=== PATIENT | male | born 1950 | race Hispanic/Latino ===

== ENCOUNTER 2017-05-09 11:44 | Observation (INO) | payer OTHER ==
[2017-05-09] MEDS ORDERED: ASPIRIN 81 MG CHEWABLE TABLET ONE (13:09)
--- NOTE | 2017-05-09 13:30 | RAD REPORT ---
EXAM DESCRIPTION: RAD - Chest Single View - 05/09/2017 1:22 pm CLINICAL HISTORY: Chest pain and pressure, pain radiating to the left arm COMPARISON: None. TECHNIQUE: AP portable chest image was obtained 1319 hours . FINDINGS: Lungs are clear. Heart and vasculature are normal. No measurable pleural effusion and no p neumothorax. No gross bony abnormality seen. No acute aortic findings suspected. IMPRESSION: No acute cardiopulmonary process.
[2017-05-09 13:53] LABS: Albumin 4.3 g/dL (3.2-5.5); Bilirubin Direct 0.2 mg/dL (0-0.2); Bilirubin Total 0.6 mg/dL (0.3-1.2); Protein, Total 7.4 g/dL (6.0-8.3)
[2017-05-09 13:55] LABS: Absolute Lymphocytes (CBC) 2.9 K/uL (0.7-4.9); Absolute Monocytes 0.5 K/uL (0.1-1.3); Absolute Neutrophil 9.5 K/uL (1.8-8.0); Basophils % 0.7 % (0-1.3); Eosinophils % 0.2 % (0-4.4); Lymphocytes % 22.3 % (15.3-44.8); MCH 30.9 pg (27.0-35.0); MCV 93.4 fL (80-100); MPV 9.2 fL (7.6-11.3); Monocytes % 3.6 % (3.3-12.3)
[2017-05-09 14:01] LABS: Protime INR 1.1
[2017-05-09 14:10] LABS: Bicarbonate 26 mEq/L (21-31); Glucose Level 110 mg/dL (65-120); Potassium 4.4 mEq/L (3.6-5.0); Sodium Level 143 mEq/L (135-145)
[2017-05-09 14:14] LABS: BUN Blood Urea Nitrogen 14 mg/dL (6-20); Creatine Phosphokinase 58 IU/L (22-269); Glomerular Filtration Rate > 90 mL/min (=/>90); Magnesium 2.2 mg/dL (1.8-2.5)
[2017-05-09 14:22] LABS: CKMB Creatine Kinase MB 0.6 ng/ml (0.3-4.0)
--- NOTE | 2017-05-09 15:05 | EDPHYS ---
Physician Documentation [facility] Name: Jacob Goncalves Age: 66 yrs Sex: Male : 1950 Arrival Date: 05/09/2017 Time: 11:44 Bed 2 Private MD: ED Physician Merrick Blanca HPI: 05/09 12:47 This 66 yrs old Male presents to ER via Ambulatory with complaints of Chest kb Tightness. 12:47 The patient or guardian reports chest pain that is located primarily in the epigastric kb area, anterior chest wall, left. Onset: yesterday. The pain radiates to the left arm, the left shoulder. Associated signs and symptoms: Pertinent positives: abdominal pain, nausea, shortness of breath. The chest pain is described as a pressure. Duration: The patient or guardian reports a single episode, that is still ongoing. Modifying factors: The symptoms are alleviated by nothing. the symptoms are aggravated by nothing. Severity of pain: At its worst the pain was moderate in the emergency department the pain is unchanged. The patient has not experienced similar symptoms in the past. The patient has not recently seen a physician. Historical: - Allergies: 11:54 No Known Drug Allergies; ph - PMHx: 11:54 Myocardial infarction; Hypertension; High Cholesterol; ph - PSHx: 11:54 left lower leg surgery for injury with saw (2008); neck surgery; ph - Immunization history:: Adult Immunizations up to date. - Social history:: Smoking status: Patient uses tobacco products, denies chronic smoking, but will smoke occasionally. ROS: 12:45 Constitutional: Negative for fever, chills, and weight loss, ENT: Negative for injury, kb pain, and discharge, Neck: Negative for injury, pain, and swelling, Back: Negative for injury and pain, : Negative for injury, bleeding, discharge, and swelling, MS/Extremity: Negative for injury and deformity, Skin: Negative for injury, rash, and discoloration, Neuro: Negative for headache, weakness, numbness, tingling, and seizure. 12:45 Cardiovascular: Positive for chest pain, Negative for edema, orthopnea, palpitations, paroxysmal nocturnal dyspnea. 12:45 Respiratory: Positive for shortness of breath, Negative for cough, dyspnea on exertion, hemoptysis, orthopnea, pleurisy, sputum production, wheezing. 12:45 Abdomen/GI: Positive for abdominal pain, nausea, Negative for vomiting, diarrhea, constipation, abdominal cramps, abdominal distension, anorexia. Exam: 12:45 Constitutional: This is a well developed, well nourished patient who is awake, alert, kb and in no acute distress. Head/Face: Normocephalic, atraumatic. ENT: Nares patent. No nasal discharge, no septal abnormalities noted. Tympanic membranes are normal and external auditory canals are clear. Oropharynx with no redness, swelling, or masses, exudates, or evidence of obstruction, uvula midline. Mucous membranes moist. Neck: Trachea midline, no thyromegaly or masses palpated, and no cervical lymphadenopathy. Supple, full range of motion without nuchal rigidity, or vertebral point tenderness. No Meningismus. Chest/axilla: Normal chest wall appearance and motion. Nontender with no deformity. No lesions are appreciated. Cardiovascular: Regular rate and rhythm with a normal S1 and S2. No gallops, murmurs, or rubs. Normal PMI, no JVD. No pulse deficits. Respiratory: Lungs have equal breath sounds bilaterally, clear to auscultation and percussion. No rales, rhonchi or wheezes noted. No increased work of breathing, no retractions or nasal flaring. Back: No spinal tenderness. No costovertebral tenderness. Full range of motion. Skin: Warm, dry with normal turgor. Normal color with no rashes, no lesions, and no evidence of cellulitis. MS/ Extremity: Pulses equal, no cyanosis. Neurovascular intact. Full, normal range of motion. Neuro: Awake and alert, GCS 15, oriented to person, place, time, and situation. Cranial nerves II-XII grossly intact. Motor strength 5/5 in all extremities. Sensory grossly intact. Cerebellar exam normal. Normal gait. 12:45 Abdomen/GI: Inspection: abdomen appears normal, Bowel sounds: normal, in all quadrants, Palpation: soft, in all quadrants, moderate abdominal tenderness, in the right upper quadrant and left upper quadrant. Vital Signs: 11:51 BP 131 / 86; Pulse 57; Resp 18; Temp 98.2; Pulse Ox 98% on R/A; Weight 74.84 kg; Height ph 5 ft. 4 in. (162.56 cm); Pain 8/10; 13:57 BP 128 / 71; Pulse 56 MON; Resp 16; Pulse Ox 100% on 2 lpm NC; sv 15:06 BP 128 / 75; Pulse 64; Resp 20; Pulse Ox 100% on 2 lpm NC; sv 15:51 BP 126 / 77; Pulse 62 MON; Resp 18; Pulse Ox 100% on 2 lpm NC; sv 11:51 Body Mass Index 28.32 (74.84 kg, 162.56 cm) ph 13:57 Sinus bradycardia sv 15:51 Sinus Rhythm sv MDM: 12:24 Patient medically screened. kb 12:45 The patient was given aspirin in the Emergency Department. Data reviewed: vital signs, kb nurses notes. Data interpreted: Pulse oximetry: on room air is 98 %. Interpretation: normal. 15:02 Counseling: I had a detailed discussion with the patient and/or guardian regarding: the kb historical points, exam findings, and any diagnostic results supporting the discharge/admit diagnosis, lab results, radiology results, the need for further work-up and treatment in the hospital. Physician consultation: Chandan Lacey MD was contacted at 15:03, regarding admission, to the telemetry unit. patient's condition, and will see patient in inpatient room. Admission orders: after a detailed discussion of the patient's condition and case, the admit orders are written by me. 15:04 ED course: family is requesting us of gallbladder to see if that is the cause. 05/09 12:24 Order name: Basic Metabolic Panel 05/09 12:24 Order name: BNP 05/09 12:24 Order name: CBC with Diff 05/09 12:24 Order name: Ckmb 05/09 12:24 Order name: CPK 05/09 12:24 Order name: Magnesium 05/09 12:24 Order name: PT-INR 05/09 12:24 Order name: Ptt, Activated 05/09 12:24 Order name: Troponin (emerg Dept Use Only) 05/09 12:29 Order name: Amylase, Serum 05/09 12:29 Order name: Hepatic Function 05/09 12:29 Order name: Lipase 05/09 13:47 Order name: Lipase; Complete Time: 13:58 EDMS 05/09 13:54 Order name: Liver (Hepatic) Function; Complete Time: 13:58 EDMS 05/09 12:24 Order name: XRAY Chest (1 view) kb 05/09 13:31 Order name: RAD; Complete Time: 13:40 EDMS 05/09 13:54 Order name: Troponin (Emerg Dept Use Only); Complete Time: 13:58 EDMS 05/09 13:56 Order name: Amylase Level; Complete Time: 13:58 EDMS 05/09 13:58 Order name: CBC with Automated Diff; Complete Time: 13:58 EDMS 05/09 14:04 Order name: Protime (+INR); Complete Time: 14:04 EDMS 05/09 14:04 Order name: PTT, Activated Partial Thromb; Complete Time: 14:04 EDMS 05/09 14:11 Order name: Basic Metabolic Panel; Complete Time: 14:36 EDMS 05/09 14:14 Order name: Creatine Phosphokinase; Complete Time: 14:36 EDMS 05/09 14:14 Order name: Magnesium; Complete Time: 14:36 EDMS 05/09 14:22 Order name: CKMB Creatine Kinase MB; Complete Time: 14:36 EDMS 05/09 14:27 Order name: BNP B-Type Natriuretic Peptide; Complete Time: 14:36 EDMS 05/09 15:02 Order name: US Abdomen Limited kb 05/09 16:15 Order name: Urine Dipstick--Ancillary (enter results) bd 05/09 12:24 Order name: EKG; Complete Time: 12:25 kb 05/09 12:24 Order name: Cardiac monitoring; Complete Time: 13:53 kb 05/09 12:24 Order name: EKG - Nurse/Tech; Complete Time: 14:06 kb 05/09 12:24 Order name: IV Saline Lock; Complete Time: 13:54 kb 05/09 12:24 Order name: Labs collected and sent; Complete Time: 13:54 kb 05/09 12:24 Order name: O2 Per Protocol; Complete Time: 13:54 kb 05/09 12:24 Order name: O2 Sat Monitoring; Complete Time: 13:54 kb 05/09 12:24 Order name: Urine Dipstick-Ancillary (obtain specimen); Complete Time: 16:12 kb 05/09 13:42 Order name: Labs - recollect needed; Complete Time: 13:53 bd Administered Medications: 13:00 Drug: Aspirin Chewable Tablet 324 mg Route: PO; sv 14:06 Follow up: Response: No adverse reaction sv 15:12 Drug: Zofran 4 mg {Note: given in right ankle.} Route: IVP; Infused Over: 2 mins; Site: sv Other; 15:52 Follow up: Response: No adverse reaction sv 15:14 Drug: morphine 2 mg {Note: given in right ankle.} Route: IVP; Site: Other; sv 15:52 Follow up: Response: No adverse reaction sv Disposition: 05/09/17 15:05 Hospitalization ordered by Chandan Lacey for Observation. Preliminary diagnosis is Chest pain, unspecified. - Bed requested for Telemetry/MedSurg (observation). - Status is Observation. sv - Condition is Stable. - Problem is new. - Symptoms are unchanged. UTI on Admission? No Addendum: 05/13/2017 07:18 Co-signature as Attending Physician, Merrick Blanca MD. g s Signatures: Dispatcher [employer] EDDeirdre Mustafa, JUDY-C PSYCHIATRIC CNS-CkCheri Sullivan Stephanie, RN RN sv Hall, Patricia, RN RN Merrick Blanca MD MD
--- NOTE | 2017-05-09 15:05 | ER ---
Nurse's Notes [facility] Name: Jacob Goncalves Age: 66 yrs Sex: Male : 1950 Arrival Date: 05/09/2017 Time: 11:44 Bed 2 Private MD: Diagnosis: Chest pain, unspecified Presentation: 05/09 11:48 Presenting complaint: Presenting complaint: states: " He woke up this morning ph feeling very tired and saying that his chest was hurting and that his stomach felt like he was having indigestion. He has had a heart attack before." Pt reports chest pressure in center of chest that radiated to L arm, nausea and SOB. 11:48 Transition of care: patient was not received from another setting of care. Onset of ph symptoms was May 09, 2017. Care prior to arrival: None. 11:48 Method Of Arrival: Ambulatory ph 11:48 Method Of Arrival: Ambulatory ph 11:48 Acuity: EVA 3 ph Triage Assessment: 11:54 General: Appears in no apparent distress. comfortable, well groomed, Behavior is calm, ph cooperative. Pain: Complains of pain in anterior aspect of left upper chest, diaphragm and mid-sternal area Pain radiates to left arm. Neuro: Level of Consciousness is awake, alert, obeys commands, Oriented to person, place, time, situation. Cardiovascular: Reports chest pain, fatigue, nausea, shortness of breath. Historical: - Allergies: 11:54 No Known Drug Allergies; ph - PMHx: 11:54 Myocardial infarction; Hypertension; High Cholesterol; ph - PSHx: 11:54 left lower leg surgery for injury with saw (2008); neck surgery; ph - Immunization history:: Adult Immunizations up to date. - Social history:: Smoking status: Patient uses tobacco products, denies chronic smoking, but will smoke occasionally. Screenin:50 Abuse screen: Denies threats or abuse. Denies injuries from another. Nutritional sv screening: No deficits noted. Tuberculosis screening: No symptoms or risk factors identified. Fall Risk None identified. Assessment: 12:50 General: Appears in no apparent distress. uncomfortable, slender, well developed, sv Behavior is calm, cooperative, appropriate for age. Pain: Complains of pain in diaphragm, xyphoid area and mid-sternal area Pain radiates to left supraclavicular area and left arm Pain currently is 8 out of 10 on a pain scale. Quality of pain is described as squeezing, Pain began today Is intermittent, episodic, Aggravated by deep breathing Also complains of decreased appetite. Neuro: Level of Consciousness is awake, alert, obeys commands, Oriented to person, place, time, situation, Moves all extremities. Full function Speech is normal. Cardiovascular: Patient's skin is warm and dry. Pulses are 3+ in right radial artery and left radial artery. Respiratory: Reports shortness of breath intermittently pain with respiration Respiratory effort is even, unlabored, Respiratory pattern is regular, symmetrical. Derm: Skin is normal. Musculoskeletal: Range of motion: intact in all extremities. 14:05 Reassessment: Patient appears in no apparent distress at this time. No changes from sv previously documented assessment. Patient and/or family updated on plan of care and expected duration. Pain level reassessed. Patient is alert, oriented x 3, equal unlabored respirations, skin warm/dry/pink. 15:12 Reassessment: Patient appears in no apparent distress at this time. No changes from sv previously documented assessment. Patient and/or family updated on plan of care and expected duration. Pain level reassessed. Patient is alert, oriented x 3, equal unlabored respirations, skin warm/dry/pink. 15:40 Reassessment: Attempted to call report. Will call back. sv 16:07 Reassessment: Ultrasound at the bedside. sv Vital Signs: 11:51 BP 131 / 86; Pulse 57; Resp 18; Temp 98.2; Pulse Ox 98% on R/A; Weight 74.84 kg; Height ph 5 ft. 4 in. (162.56 cm); Pain 8/10; 13:57 BP 128 / 71; Pulse 56 MON; Resp 16; Pulse Ox 100% on 2 lpm NC; sv 15:06 BP 128 / 75; Pulse 64; Resp 20; Pulse Ox 100% on 2 lpm NC; sv 15:51 BP 126 / 77; Pulse 62 MON; Resp 18; Pulse Ox 100% on 2 lpm NC; sv 11:51 Body Mass Index 28.32 (74.84 kg, 162.56 cm) ph 13:57 Sinus bradycardia sv 15:51 Sinus Rhythm sv ED Course: 11:44 Patient arrived in ED. as 11:51 Triage completed. ph 11:54 Arm band placed on. ph 11:59 Patient placed in waiting room, Patient notified of wait time. EKG completed in triage. ph Results shown to MD. 12:24 Deirdre Tran FNP-C is [facility]. kb 12:24 Merrick Blanca MD is Attending Physician. kb 12:49 Jenae Freed, ANGEL is Primary Nurse. sv 12:50 Patient has correct armband on for positive identification. Placed in gown. Bed in low sv position. Call light in reach. Side rails up X 1. Adult w/ patient. traffic monitor specialist on. Pulse ox on. NIBP on. Door closed. Warm blanket given. Head of bed elevated. 12:50 Oxygen administration via nasal cannula \\T\\ 2L/min. sv 12:55 Missed attempt(s): 20 gauge in left antecubital area. Bleeding controlled, band aid sv applied, catheter tip intact. 13:05 Initial lab(s) drawn, by me, sent to lab. Missed attempt(s): 22 gauge in right hand. sv Bleeding controlled, band aid applied, catheter tip intact. 13:20 Missed attempt(s): 20 gauge in right antecubital area. by Dr Blanca using ultrasound but sv was unsuccessful.. 13:30 Missed attempt(s): 18 gauge in right upper arm. done by Dr Blanca using ultrasound but sv was unsuccessful 3 times.. 13:45 Lab(s) recollected, by me, sent to lab. Inserted saline lock: 20 gauge in right ,using sv aseptic technique. ankle, done by Dr Blanca. Blood collected. 13:53 Amylase, Serum Sent. sv 13:53 Hepatic Function Sent. sv 13:53 Lipase Sent. sv 13:54 Basic Metabolic Panel Sent. sv 13:54 BNP Sent. sv 13:55 CBC with Diff Sent. sv 13:55 Ckmb Sent. sv 13:55 CPK Sent. sv 13:55 Magnesium Sent. sv 13:55 PT-INR Sent. sv 13:55 Ptt, Activated Sent. sv 13:55 Troponin (emerg Dept Use Only) Sent. sv 14:02 One-on-one care X 60 minutes. sv 14:06 Awaiting lab results, Awaiting radiology results. sv 15:04 Chandan Lacey MD is Hospitalizing Provider. kb 15:20 ED physician to see patient. sv 16:06 No provider procedures requiring assistance completed. Patient admitted, IV remains in sv place. intact. 16:11 Urine collected: clean catch specimen, clear. ag 16:15 Ultrasound completed. Patient tolerated well. sg3 Administered Medications: 13:00 Drug: Aspirin Chewable Tablet 324 mg Route: PO; sv 14:06 Follow up: Response: No adverse reaction sv 15:12 Drug: Zofran 4 mg {Note: given in right ankle.} Route: IVP; Infused Over: 2 mins; Site: sv Other; 15:52 Follow up: Response: No adverse reaction sv 15:14 Drug: morphine 2 mg {Note: given in right ankle.} Route: IVP; Site: Other; sv 15:52 Follow up: Response: No adverse reaction sv Outcome: 15:05 Decision to Hospitalize by Provider. kb 16:07 Admitted to Tele accompanied by tech, family with patient, via wheelchair, room 406, sv with oxygen, with chart, Report called to Dinorah ORTIZ 16:07 Condition: stable 16:07 Instructed on the need for admit. 16:23 Patient left the ED. sv Signatures: Deirdre Tran, BORDER GUARD-C BORDER GUARD-Jenae Newton, RN RN sv Anu Valencia Ana ag Hall, Patricia, ANGEL RN Reina Rodas sg3 Corrections: (The following items were deleted from the chart) 11:51 11:48 Presenting complaint: ph ph
[2017-05-09] MEDS ORDERED: ONDANSETRON 4 MG/2 ML VIAL ONE (15:29)
[2017-05-09] MEDS ORDERED: MORPHINE 4 MG/ML SYR ONE (15:29)
--- NOTE | 2017-05-09 15:57 | EKG ---
Test Date: 2017-05-09 Test Time: 11:54:54 Loft Patternmaker: LINDSEY MEASUREMENT RESULTS: Intervals: Rate: 59 DC: 160 QRSD: 76 QT: 436 QTc: 431 Roscoe: P: 22 DC: 160 QRS: -12 T: 47 INTERPRETIVE STATEMENTS: Sinus bradycardia Otherwise normal ECG Compared to ECG 09/07/2001 16:22:00 Sinus rhythm no longer present Electronically Signed On 05-09-17 15:55:53 CDT by Jethro Murillo
[2017-05-09] MEDS ORDERED: ACETAMINOPHEN 500 MG TAB PO PRN (16:46)
[2017-05-09] MEDS ORDERED: ONDANSETRON 4 MG/2 ML VIAL IV PRN (16:46)
--- NOTE | 2017-05-09 16:56 | RAD REPORT ---
EXAM DESCRIPTION: US - Abdomen Exam Limited - 05/09/2017 4:22 pm CLINICAL HISTORY: Right upper quadrant pain COMPARISON: None. FINDINGS: No gallstones, sludge or other abnormalities within the gallbladder lumen. There is no wal l thickening or pericholecystic fluid. No common duct stone or biliary tree dilatation identified. IMPRESSION: Normal gallbladder and biliary tree ultrasound.
[2017-05-09 17:12] VITALS: BMI 27.4
[2017-05-09] MEDS ORDERED: TRAMADOL HCL 50 MG TAB PO PRN (17:13)
[2017-05-09] MEDS ORDERED: PNEUMOCOCCAL VACCINE 0.5 ML IMVAC ONE (18:00)
[2017-05-09] MEDS ORDERED: INFLUENZA VACCINE (for 3y+) 0.5 ML DOSE IMVAC ONE (18:00)
[2017-05-09] MEDS: ATORVASTATIN 40 MG TAB PO SCH (18:49)
[2017-05-09] MEDS: METOPROLOL TAR 25 MG TAB PO SCH (20:10)
[2017-05-09] MEDS ORDERED: MAGNES/ALUMIN/SIMET 30ML UCUP PO PRN (20:43)
[2017-05-09 21:10] LABS: Urine Blood TRACE (NEG); Urine Glucose NEGATIVE (NEG); Urine Protein NEGATIVE (NEG)
[2017-05-10] MEDS: MORPHINE 4 MG/ML SYR IV PRN ×3 (01:32→20:11)
[2017-05-10 04:38] LABS: BUN Blood Urea Nitrogen 15 mg/dL (6-20); Bicarbonate 26 mEq/L (21-31); Glomerular Filtration Rate > 90 mL/min (=/>90); Glucose Level 120 mg/dL (65-120); Sodium Level 142 mEq/L (135-145)
[2017-05-10 04:41] LABS: Absolute Lymphocytes (CBC) 3.5 K/uL (0.7-4.9); Absolute Monocytes 0.5 K/uL (0.1-1.3); Absolute Neutrophil 5.7 K/uL (1.8-8.0); Basophils % 0.4 % (0-1.3); Eosinophils % 1.8 % (0-4.4); Hematocrit 39.4 % (39.6-49.0); Lymphocytes % 35.1 % (15.3-44.8); MCH 31.2 pg (27.0-35.0); MCV 92.2 fL (80-100); MPV 9.4 fL (7.6-11.3); Monocytes % 5.3 % (3.3-12.3); RBC Red Blood Cell Count 4.27 M/uL (4.33-5.43)
[2017-05-10] MEDS ORDERED: HOME MED 1 EA UNK (Clopidogrel Bisulfate [Clopidogrel] 75 MG) PO SCH (08:00)
[2017-05-10] MEDS: HOME MED 1 EA UNK (Omega-3/Dha/Epa/Fish Oil [Fish Oil 500 Mg Softgel] 500 MG) PO SCH (09:00)
[2017-05-10] MEDS ORDERED: MULTIVITS CA MIN PO SCH (09:00)
[2017-05-10] MEDS ORDERED: [UNRECOGNIZED DRUG - OTHER] PO SCH (09:00)
[2017-05-10] MEDS ORDERED: IRON PO SCH (09:00)
[2017-05-10] MEDS: METOPROLOL TAR 25 MG TAB PO SCH ×2 (09:00→21:00)
[2017-05-10] MEDS: NICOTINE 7 MG/PAT TD SCH (09:00)
[2017-05-10] MEDS ORDERED: LYCOP PO SCH (09:00)
[2017-05-10] MEDS ORDERED: REGADENOSON 0.4 MG/5 ML SYR IV ONE (11:45)
[2017-05-10] MEDS: MULTIVIT W/ MINERAL TAB PO SCH (13:40)
[2017-05-10] MEDS: CLOPIDOGREL 75 MG TABLET PO SCH (13:40)
[2017-05-10] MEDS: FENOFIBRATE 160 MG TAB PO SCH (13:40)
[2017-05-10] MEDS: ASPIRIN EC 81 MG TAB PO SCH (13:41)
[2017-05-10] MEDS: LISINOPRIL 10 MG TAB PO SCH (13:41)
--- NOTE | 2017-05-10 13:53 | RAD REPORT ---
EXAM DESCRIPTION: NM - Rest Stress Cardiac Imaging - 05/10/2017 1:43 pm CLINICAL HISTORY: Chest pain. COMPARISON: None. TECHNIQUE: The patient was administered approximately 10mCi of Tc 99m Sestamibi prior to resting SPE CT imaging of the heart. The patient was then administered approximately 30 mCi of Tc 99m Sestamibi f ollowing exercise or pharmacologic stress. Multiplanar SPECT images were reviewed. FINDINGS: There is uniformity of radiotracer uptake involving the entire left ventricular myocardium . The left ventricular ejection fraction equals 59% IMPRESSION: Negative for a myocardial perfusion defect
--- NOTE | 2017-05-10 16:44 | TREADPHA ---
DX: CHEST PAIN Date of Study: 05/10/2017 Ht: 5' 5 " Wt: 165 lb 0 oz Consulting Physician: JEANNE MEDICATIONS: TYLENOL, MAALOX, ASPIRIN, LIPITOR, PLAVIX, TRICOR, PRINIVIL, LOPRESSOR, NICODERM, ZOFRAN HISTORY: 66 YEAR OLD MALE HERE FOR CHEST PAIN. HISTORY OF MYOCARDIAL INFARCTION, HYPERTENSION AND HIGH CHOLESTEROL PHYSICIAL EXAMINATION: RESTING B.P.: 122/58 RESTING H.R.: 50 RESTING EKG: SINUS BRADYCARDIA PROTOCOL: EXERCISE TIME: 3:30 B.P. AT PEAK STRESS: 127/63 IMPRESSION: LEXISCAN STRESS TEST PERFORMED. CARDIOLITE INJECTED PER PROTOCOL. NO ARRHYTHMIA NOTED. COMPLAINTS OF SIX OUT OF TEN ON PAIN SCALE OF MIDSTERNAL CHEST PRESSURE PRIOR TO TEST THAT REDUCED TO FOUR OUT OF TEN ON PAIN SCALE POST TEST. SEE NUCLEAR MEDICINE REPORT. NON-DIAGNOSTIC ELECTROCARDIOGRAM WITH LEXISCAN STRESS.
[2017-05-10] MEDS: ATORVASTATIN 40 MG TAB PO SCH (16:54)
--- NOTE | 2017-05-10 17:05 | CON ---
History Of Present Illness: Mr. Goncalves is 66, came to the hospital because of chest pain. The chest pain was epigastric, nonradiating. He did not say whether it felt like when he has had a heart reyna ck before. He had a heart attack about 5 years ago. The stent was placed. We do not know any of th e details. It was done at [facility]. Since he has been here in our hospital, his EKG shows s inus bradycardia; otherwise it is normal, and his cardiac enzymes have been normal. Complete blood c ount, normal. Ultrasound of the abdomen is negative for gallstones. Everything looked normal on the test. Social History: The patient is a cigarette smoker but has now committed to trying to quit. Outpatient Medications: Aspirin, Plavix, atorvastatin, lisinopril, fenofibrate, metoprolol, tramadol . Physical Examination: General: He is alert, oriented, pleasant, extremely hard of hearing. Hearing aids are not working. HEENT: Otherwise is normal. Abdomen: Soft. Heart exam: Normal. Lungs: Clear. Carotids, no bruit. Extremities: Normal pulses. Impression: Mr. Goncalves probably is not having an acute coronary syndrome. Nothing is leading that w ay. A pharmacologic nuclear stress test is scheduled. If it is abnormal, we will proceed with a cardiac cath tomorrow. MINDY Voice ID: [id number] Report ID: [id number]
--- NOTE | 2017-05-10 18:22 | HP ---
Date of Admission: 05/09/2017 Chief Complaint: Epigastric pain, retrosternal pain. History Of Present Illness: A 66-year-old male was brought to the emergency room with recurrent epis odes of epigastric and retrosternal pain. The patient had workup in the emergency room. There was n o evidence of myocardial injury. The patient is admitted for observation. There is no history of fe radha, chills, rigors, or systemic symptoms. The patient claims that he has been having these feeling off and on for a week or longer. Past Medical History: Patient has history of coronary artery disease. He claims that he had 1 stent in the coronaries. Other history includes history of hypertension and hyperlipidemia. Allergies: NONE. Past Surgical History: Positive for neck surgery and leg surgery. Family History: Noncontributory. Personal History: Nonsmoker. Review of Systems: No fever, chills, rigors. Physical Examination: General: Revealed 66-year-old male, fully alert and oriented. HEENT: Negative. Neck: Supple. JVD negative. Chest: Clear. Heart: Regular. Abdomen: Mild epigastric tenderness present. Bowel sounds present. Extremities: No edema. Neurologic: Negative. Laboratory Data: Troponin normal. White count at admission was 13,900. Lipase normal. Ultrasound of the abdomen negative. Assessment: 1.Epigastric and retrosternal pain. 2.Known coronary artery disease. 3.Hyperlipidemia by history. 4.Hypertension. Plan: The patient's ultrasound of the abdomen is negative, so he does not have gallbladder disease. The patient is scheduled for stress test today after which he will be re-evaluated. PARKER/DAMI Voice ID: [id number]
[2017-05-10 19:56] VITALS: O2SAT 96
[2017-05-11 04:22] VITALS: TEMP 97.1
--- NOTE | 2017-05-11 08:01 | RAD REPORT ---
EXAM DESCRIPTION: CT - Abdomen Pelvis Wo Contrast - 05/10/2017 10:25 pm CLINICAL HISTORY: Abdominal pain /epigastric pain and nausea COMPARISON: None TECHNIQUE: Computed axial tomography of the abdomen and pelvis was obtained. IV was not requested. O ral contrast was given. Coronal reconstructions performed. All CT scans are performed using dose optimization technique as appropriate and may include automated exposure control or mA/KV adjustment according to patient size. FINDINGS: The evaluation of solid organs and vessels is limited secondary to the lack of contrast a dministration. The liver, spleen, pancreas, and adrenals appear grossly normal. A 3 centimeter low-density mass extends off of the lower pole of the left kidney. Additional small lo w-density renal masses may represent cysts. There is no evidence of diverticulitis. The appendix is not seen. There is no stranding adjacent to t he cecum. A left inguinal hernia contains fat. The prostate gland is mildly enlarged IMPRESSION: 3 centimeter left renal low-density mass probably represents a cyst. This should be conf irmed with ultrasound Left inguinal hernia containing fat
[2017-05-11] MEDS: HOME MED 1 EA UNK (Omega-3/Dha/Epa/Fish Oil [Fish Oil 500 Mg Softgel] 500 MG) PO SCH (09:00)
[2017-05-11] MEDS: METOPROLOL TAR 25 MG TAB PO SCH (09:00)
--- NOTE | 2017-05-11 09:16 | RAD REPORT ---
EXAM DESCRIPTION: US - Renal Ultrasound-Complete - 05/11/2017 8:47 am CLINICAL HISTORY: . Renal mass COMPARISON: May 10 cat scan FINDINGS: The right kidney measures 11 cm with a normal echotexture. A 1.4 centimeter cyst is presen t The left kidney measures cm with a normal echotexture. A 3.5 centimeter cyst extends off of the lower pole. Hydronephrosis is not seen. IMPRESSION: Bilateral renal cysts
[2017-05-11] MEDS: CLOPIDOGREL 75 MG TABLET PO SCH (10:55)
[2017-05-11] MEDS: MULTIVIT W/ MINERAL TAB PO SCH (10:55)
[2017-05-11] MEDS: LISINOPRIL 10 MG TAB PO SCH (10:56)
[2017-05-11] MEDS: ASPIRIN EC 81 MG TAB PO SCH (10:56)
[2017-05-11] MEDS: FENOFIBRATE 160 MG TAB PO SCH (11:06)
[2017-05-11 11:08] VITALS: BP 100/59
[2017-05-11] MEDS: NICOTINE 7 MG/PAT TD SCH (13:21)
== END 2017-05-11 14:28 | disposition home or self-care (01) ==
LOC: ER 11:44 → ERHOLD 15:06 → 4TH 16:07
PROVIDERS: ADMIT Internal Medicine; ATTEND Internal Medicine
DX: R10.13 Epigastric pain (principal); I25.10 Atherosclerotic heart disease of native coronary artery without angina pectoris; Z95.5 Presence of coronary angioplasty implant and graft; I10 Essential (primary) hypertension; E78.5 Hyperlipidemia, unspecified
CPT/HCPCS: 36415; 71045; 74176; 76705; 76770; 78452; 80048; 80076; 81003; 82150; 82550; 82553; 83690; 83735; 83880; 84484; 85025; 85610; 85730; 93005; 93017; 96374; 96375; 99285; A9500; G0378; J2405; J2785

== ENCOUNTER 2018-07-08 13:34 | Observation (INO) | payer OTHER ==
--- OUTSIDE RECORDS SUMMARY | 2018-07-08 13:36 | XMS REPORT ---
:1950 [facility] Address [address] [place] [address] [place] [id number] Care Team Providers Name Role Phone Unavailable Unavailable Unavailable Problems This patient has no known problems. Allergies, Adverse Reactions, Alerts This patient has no known allergies or adverse reactions. Medications This patient has no known medications.
[2018-07-08] MEDS ORDERED: NA CHLORIDE 0.9% 1,000 ML ONE ×2 (14:14→15:18)
--- NOTE | 2018-07-08 14:57 | RAD REPORT ---
EXAM DESCRIPTION: RAD - Chest Single View - 07/08/2018 2:38 pm CLINICAL HISTORY: Lower chest pain, right upper quadrant pain COMPARISON: March 2017 TECHNIQUE: AP portable chest image was obtained 1436 hours . FINDINGS: No focal lung parenchymal process. Lung markings are similar to comparison. Sternotomy wir es have been placed since the comparison. Heart size and vasculature are normal range and unchanged. No measurable pleural effusion and no pneumothorax. No acute bony abnormality seen. No acute aortic f indings suspected. IMPRESSION: No acute cardiopulmonary process. No significant change from comparison.
[2018-07-08 15:09] LABS: Absolute Lymphocytes (CBC) 2.6 K/uL (0.7-4.9); Absolute Monocytes 0.5 K/uL (0.1-1.3); Absolute Neutrophil 10.5 K/uL (1.8-8.0); Basophils % 0.4 % (0-1.3); Eosinophils % 1.1 % (0-4.4); Hematocrit 36.6 % (39.6-49.0); MPV 9.1 fL (7.6-11.3); Monocytes % 3.9 % (3.3-12.3); RBC Red Blood Cell Count 4.19 M/uL (4.33-5.43)
[2018-07-08] MEDS ORDERED: ONDANSETRON 4 MG/2 ML VIAL ONE (15:18)
[2018-07-08] MEDS ORDERED: MORPHINE 4 MG/ML SYR ONE (15:18)
[2018-07-08 15:28] LABS: ALT/SGPT 14 U/L (12-78); AST/SGOT 10 U/L (15-37); Albumin 3.9 g/dL (3.4-5.0); Alkaline Phosphatase 88 U/L (45-117); BUN Blood Urea Nitrogen 17 mg/dL (7-18); Bicarbonate 26 mmol/L (21-32); Bilirubin Direct < 0.1 mg/dL (0-0.2); Bilirubin Total 0.2 mg/dL (0.2-1.0); Glucose Level 100 mg/dL (74-106); Lipase 83 U/L (73-393); Magnesium 2.5 mg/dL (1.8-2.4); NT PRO-BNP 388 pg/mL (<125); Potassium 4.2 mmol/L (3.5-5.1); Protein, Total 7.6 g/dL (6.4-8.2); Sodium Level 145 mmol/L (136-145); Troponin (Emerg Dept Use Only) < 0.02 ng/mL (0.0-0.045)
[2018-07-08 15:58] LABS: Protime INR 1.11
--- NOTE | 2018-07-08 16:19 | EDPHYS ---
Physician Documentation [facility] Name: Jacob Goncalves Age: 67 yrs Sex: Male : 1950 Arrival Date: 07/08/2018 Time: 13:38 Bed 23 Private MD: Lopez Garcia E ED Physician Jose Flowers HPI: 07/08 14:48 This 67 yrs old Male presents to ER via Ambulatory with complaints of Flank anthony Pain, Back Pain, Chest Discomfort. 14:48 The patient complains of pain in the right mid back. The pain radiates to the left mid anthony back. Onset: The symptoms/episode began/occurred 2 day(s) ago. 14:48 The patient has shortness of breath at rest. The patient or guardian reports chest pain anthony that is located primarily in the anterior chest wall, bilaterally. Historical: - Allergies: 13:43 No Known Allergies; ph - PMHx: 13:43 High Cholesterol; Hypertension; Myocardial infarction; ph - PSHx: 13:43 left lower leg surgery for injury with saw (2008); neck surgery; ph - Immunization history:: Adult Immunizations unknown. - Social history:: Smoking status: Patient/guardian denies using tobacco. - Ebola Screening: : No symptoms or risks identified at this time. - Family history:: not pertinent. ROS: 14:48 Constitutional: Negative for fever, chills, and weight loss, Eyes: Negative for injury, anthony pain, redness, and discharge, ENT: Negative for injury, pain, and discharge, Neck: Negative for injury, pain, and swelling, Abdomen/GI: Negative for abdominal pain, nausea, vomiting, diarrhea, and constipation, Back: Negative for injury and pain, : Negative for injury, bleeding, discharge, and swelling, MS/Extremity: Negative for injury and deformity, Skin: Negative for injury, rash, and discoloration, Neuro: Negative for headache, weakness, numbness, tingling, and seizure, Psych: Negative for depression, anxiety, suicide ideation, homicidal ideation, and hallucinations, Allergy/Immunology: Negative for hives, rash, and allergies, Endocrine: Negative for neck swelling, polydipsia, polyuria, polyphagia, and marked weight changes, Hematologic/Lymphatic: Negative for swollen nodes, abnormal bleeding, and unusual bruising. 14:48 Cardiovascular: Positive for chest pain. 14:48 Respiratory: Positive for shortness of breath. Exam: 14:48 Constitutional: This is a well developed, well nourished patient who is awake, alert, anthony and in no acute distress. Head/Face: Normocephalic, atraumatic. Eyes: Pupils equal round and reactive to light, extra-ocular motions intact. Lids and lashes normal. Conjunctiva and sclera are non-icteric and not injected. Cornea within normal limits. Periorbital areas with no swelling, redness, or edema. ENT: Nares patent. No nasal discharge, no septal abnormalities noted. Tympanic membranes are normal and external auditory canals are clear. Oropharynx with no redness, swelling, or masses, exudates, or evidence of obstruction, uvula midline. Mucous membranes moist. Neck: Trachea midline, no thyromegaly or masses palpated, and no cervical lymphadenopathy. Supple, full range of motion without nuchal rigidity, or vertebral point tenderness. No Meningismus. Chest/axilla: Normal chest wall appearance and motion. Nontender with no deformity. No lesions are appreciated. Cardiovascular: Regular rate and rhythm with a normal S1 and S2. No gallops, murmurs, or rubs. Normal PMI, no JVD. No pulse deficits. Respiratory: Lungs have equal breath sounds bilaterally, clear to auscultation and percussion. No rales, rhonchi or wheezes noted. No increased work of breathing, no retractions or nasal flaring. Abdomen/GI: Soft, non-tender, with normal bowel sounds. No distension or tympany. No guarding or rebound. No evidence of tenderness throughout. Back: No spinal tenderness. No costovertebral tenderness. Full range of motion. Male : Normal genitalia with no discharge or lesions. Skin: Warm, dry with normal turgor. Normal color with no rashes, no lesions, and no evidence of cellulitis. MS/ Extremity: Pulses equal, no cyanosis. Neurovascular intact. Full, normal range of motion. Neuro: Awake and alert, GCS 15, oriented to person, place, time, and situation. Cranial nerves II-XII grossly intact. Motor strength 5/5 in all extremities. Sensory grossly intact. Cerebellar exam normal. Normal gait. Psych: Awake, alert, with orientation to person, place and time. Behavior, mood, and affect are within normal limits. 14:48 Musculoskeletal/extremity: DVT Exam: No signs of deep vein thrombosis. no pain, no swelling, no tenderness, negative Homans' sign noted on exam, no appreciated bluish discoloration, no erythema, no increased warmth. Vital Signs: 13:43 BP 145 / 92; Pulse 60; Resp 18; Temp 97.8; Pulse Ox 97% on R/A; Weight 63.5 kg; Height ph 5 ft. 5 in. (165.10 cm); Pain 8/10; 14:26 Pulse 52; Resp 16; Pulse Ox 100% on R/A; aj 15:51 BP 143 / 63; Pulse 53; Resp 19; Pulse Ox 100% on R/A; aj 16:30 BP 145 / 64; Pulse 55; Resp 16; Pulse Ox 100% ; rv 17:00 BP 148 / 73; Pulse 60; Resp 15; Pulse Ox 99% ; rv 18:00 BP 138 / 70; Pulse 59; Resp 18; Temp 98.3(O); Pulse Ox 99% ; rv 13:43 Body Mass Index 23.30 (63.50 kg, 165.10 cm) ph MDM: 13:49 Patient medically screened. [facility] 14:50 Data reviewed: vital signs, nurses notes, lab test result(s), EKG, radiologic studies, [facility] CT scan, plain films. 07/08 13:52 Order name: Basic Metabolic Panel; Complete Time: 16: [facility] 07/08 13:52 Order name: CBC with Automated Diff; Complete Time: 16: [facility] 07/08 13:53 Order name: Basic Metabolic Panel 07/08 13:53 Order name: CBC with Diff 07/08 13:53 Order name: LFT's; Complete Time: 16: 07/08 13:53 Order name: Magnesium; Complete Time: 16: 07/08 13:53 Order name: NT PRO-BNP; Complete Time: 16: 07/08 13:53 Order name: PT-INR; Complete Time: 16: 07/08 13:53 Order name: Troponin (emerg Dept Use Only); Complete Time: 16: 07/08 13:53 Order name: Lipase; Complete Time: 16: 07/08 17:11 Order name: Troponin I [facility] 07/08 17:11 Order name: Troponin I [facility] 07/08 17:11 Order name: Troponin I [facility] 07/08 17:11 Order name: Troponin I [facility] 07/08 13:53 Order name: XRAY Chest (1 view); Complete Time: 16:06 07/08 13:53 Order name: EKG; Complete Time: 13:53 07/08 13:53 Order name: Cardiac monitoring; Complete Time: 13:58 07/08 13:53 Order name: EKG - Nurse/Tech; Complete Time: 13:58 07/08 13:53 Order name: IV Saline Lock; Complete Time: 13:58 07/08 13:53 Order name: Labs collected and sent; Complete Time: 16:00 07/08 13:53 Order name: O2 Per Protocol; Complete Time: 16:00 07/08 16:14 Order name: US Abdomen Limited [facility] 07/08 17:11 Order name: CONS Physician Consult [facility] 07/08 17:11 Order name: Heart Healthy [facility] 07/08 17:59 Order name: US; Complete Time: 18:04 [facility] 07/08 13:53 Order name: O2 Sat Monitoring; Complete Time: 16:00 07/08 15:19 Order name: Labs - recollect needed; Complete Time: 15:53 Administered Medications: 15:09 Drug: morphine 4 mg Route: IVP; Site: Other; aj 15:53 Follow up: Response: Pain is decreased aj 15:10 Drug: NS 0.9% 1000 ml Route: IV; Rate: 125 ml/hr; Site: Other; aj 15:10 Drug: Zofran 4 mg Route: IVP; Site: Other; aj 15:53 Follow up: Response: Pain is decreased Disposition: 07/08/18 16:18 Hospitalization ordered by Sunita Arora for Observation. Preliminary diagnosis are Other chest pain, Vomiting. - Bed requested for Telemetry/MedSurg (observation). - Status is Observation. rv - Condition is Stable. - Problem is new. - Symptoms have improved. UTI on Admission? No Signatures: Dispatcher [employer] [facility] Esther Delacruz RN RN dw Myers, Amanda, RN RN aj Anderson, Corey, MD MD cha Hall, Patricia, RN RN Sims, LavonneChamp Foreman, RN RN rv Corrections: (The following items were deleted from the chart) 14:53 14:48 Chest For PE Angio+CT.RAD.BRZ ordered. EDMS EDMS 16:16 14:51 Angio Aorta For Dissection+CT.RAD.BRZ ordered. EDVA EDMS 17:20 16:18 Hospitalization Ordered by Sunita Arora MD for Observation. Preliminary dw diagnosis is Other chest pain; Vomiting. Bed requested for Telemetry/MedSurg (observation). Status is Observation. Condition is Stable. Problem is new. Symptoms have improved. UTI on Admission? No. anthony 18:42 17:20 07/08/2018 16:18 Hospitalization Ordered by Sunita Arora MD for Observation. rv Preliminary diagnosis is Other chest pain; Vomiting. Bed requested for Telemetry/MedSurg (observation). Status is Observation. Condition is Stable. Problem is new. Symptoms have improved. UTI on Admission? No. dw
--- NOTE | 2018-07-08 16:19 | ER ---
Nurse's Notes [facility] Name: Jacob Goncalves Age: 67 yrs Sex: Male : 1950 Arrival Date: 07/08/2018 Time: 13:38 Bed 23 Private MD: Lopez Garcia E Diagnosis: Other chest pain;Vomiting Presentation: 07/08 13:43 Presenting complaint: Patient states: RUQ pain that radiated to back, began this ph morning, also reports N/V/D, states, " The pain goes into my chest sometimes too, I've had a bypass and that worried me." Denies fever or SOB. Transition of care: patient was not received from another setting of care. Onset of symptoms was July 08, 2018. Risk Assessment: Do you want to hurt yourself or someone else? Patient reports no desire to harm self or others. Initial Sepsis Screen: Does the patient meet any 2 criteria? No. Patient's initial sepsis screen is negative. Does the patient have a suspected source of infection? No. Patient's initial sepsis screen is negative. Care prior to arrival: None. 13:43 Method Of Arrival: Ambulatory ph 13:43 Acuity: EVA 3 ph Historical: - Allergies: 13:43 No Known Allergies; ph - PMHx: 13:43 High Cholesterol; Hypertension; Myocardial infarction; ph - PSHx: 13:43 left lower leg surgery for injury with saw (2008); neck surgery; ph - Immunization history:: Adult Immunizations unknown. - Social history:: Smoking status: Patient/guardian denies using tobacco. - Ebola Screening: : No symptoms or risks identified at this time. - Family history:: not pertinent. Screenin:51 Abuse screen: Denies threats or abuse. Denies injuries from another. Nutritional ph screening: No deficits noted. Tuberculosis screening: No symptoms or risk factors identified. Fall Risk None identified. Assessment: 13:49 General: Appears in no apparent distress. comfortable, well groomed, Behavior is calm, ph cooperative, appropriate for age. Pain: Complains of pain in epigastric area Pain radiates to RUQ, back and L chest Pain currently is 8 out of 10 on a pain scale. Neuro: Level of Consciousness is awake, alert, obeys commands, Oriented to person, place, time, situation. Cardiovascular: Reports chest pain, nausea, vomiting, Denies palpitations, vomiting, Capillary refill < 3 seconds in bilateral fingers Patient's skin is warm and dry. Respiratory: Airway is patent Respiratory effort is even, unlabored, Respiratory pattern is regular, symmetrical. GI: Abdomen is flat, non-distended, Reports upper abdominal pain, diarrhea, epigastric pain, nausea, vomiting. Derm: Skin is intact, Skin is pink, warm \\T\\ dry. Musculoskeletal: Circulation, motion, and sensation intact. Range of motion: intact in all extremities. 14:10 Reassessment: Notified provider of need for IV access. Provider stated that he would be aj in "in a minute". 14:26 General: Appears in no apparent distress. comfortable, Behavior is calm, cooperative, aj appropriate for age. Neuro: Level of Consciousness is awake, alert, obeys commands, Oriented to person, place, time, situation, Appropriate for age. Cardiovascular: Reports chest pain, Capillary refill < 3 seconds in bilateral fingers Patient's skin is warm and dry. Respiratory: Airway is patent Respiratory effort is even, unlabored, Respiratory pattern is symmetrical. Derm: Skin is intact, is healthy with good turgor, Skin is pink, warm \\T\\ dry. normal. Musculoskeletal: Circulation, motion, and sensation intact. Range of motion: intact in all extremities. 17:57 Reassessment: Nurse unavailable at this time. Will call back in 5-10 minutes. Awaiting ss for Dr. Flowers to speak with patient regarding admission. Vital Signs: 13:43 BP 145 / 92; Pulse 60; Resp 18; Temp 97.8; Pulse Ox 97% on R/A; Weight 63.5 kg; Height ph 5 ft. 5 in. (165.10 cm); Pain 8/10; 14:26 Pulse 52; Resp 16; Pulse Ox 100% on R/A; aj 15:51 BP 143 / 63; Pulse 53; Resp 19; Pulse Ox 100% on R/A; aj 16:30 BP 145 / 64; Pulse 55; Resp 16; Pulse Ox 100% ; rv 17:00 BP 148 / 73; Pulse 60; Resp 15; Pulse Ox 99% ; rv 18:00 BP 138 / 70; Pulse 59; Resp 18; Temp 98.3(O); Pulse Ox 99% ; rv 13:43 Body Mass Index 23.30 (63.50 kg, 165.10 cm) ph ED Course: 13:38 Patient arrived in ED. rg4 13:38 Lopez Garcia MD is Private Physician. rg4 13:45 Triage completed. ph 13:45 Arm band placed on Patient placed in an exam room, on a stretcher. ph 13:49 Jose Flowers MD is Attending Physician. anthony 13:51 Patient has correct armband on for positive identification. Bed in low position. Call ph light in reach. Side rails up X 1. desk monitor on. Pulse ox on. Sitter at bedside. Door closed. Noise minimized. Warm blanket given. 14:07 Radiology exam delayed due to IV insertion attempt and/or patient not having mh1 appropriate IV at this time. 14:12 EKG done, by client technical support associate. reviewed by Jose Flowers MD. 3 14:26 Shanti Valladares, RN is Primary Nurse. aj 14:37 XRAY Chest (1 view) In Process Unspecified. EDMS 15:11 Inserted saline lock: 24 gauge in right ,using aseptic technique. Lower leg Blood aj collected. 16:01 Radiology exam delayed due to IV insertion attempt and/or patient not having sw appropriate IV at this time. 16:18 Sunita Arora MD is Hospitalizing Provider. anthony 17:41 Ultrasound completed. Patient tolerated well. 3 18:42 No provider procedures requiring assistance completed. Patient admitted, IV remains in rv place. Administered Medications: 15:09 Drug: morphine 4 mg Route: IVP; Site: Other; aj 15:53 Follow up: Response: Pain is decreased aj 15:10 Drug: NS 0.9% 1000 ml Route: IV; Rate: 125 ml/hr; Site: Other; aj 15:10 Drug: Zofran 4 mg Route: IVP; Site: Other; aj 15:53 Follow up: Response: Pain is decreased aj Outcome: 16:18 Decision to Hospitalize by Provider. anthony 18:42 Admitted to Tele accompanied by tech, via stretcher, room 406, with chart, Report rv called to KATE ORTIZ 18:42 Condition: good 18:42 Instructed on the need for admit. 18:42 Patient left the ED. rv Signatures: Dispatcher [employer] EDMS Shanti Valladares, RN Jose Pitts MD MD cha Harvey, [facility] Monae Santiago RN RN Chitra Fregoso RN RN Brett, Alissa Ellsworth, Hannah 4 Reina Rodas 3 Archana Tan 3 Champ Mazariegos RN RN rv Corrections: (The following items were deleted from the chart) 14: 13:57 EKG done, by client technical support associate. reviewed by Jose Flowers MD 3 3
--- NOTE | 2018-07-08 16:43 | EKG ---
Test Date: 2018-07-08 Test Time: 13:57:04 [place]opeman: GOLDY MEASUREMENT RESULTS: Intervals: Rate: 56 VA: 174 QRSD: 82 QT: 436 QTc: 420 [place]: P: 40 VA: 174 QRS: 17 T: 69 INTERPRETIVE STATEMENTS: Sinus bradycardia Otherwise normal ECG Compared to ECG 05/09/2017 11:54:54 No significant changes Electronically Signed On 07-08-18 16:42:32 CDT by Ez Hair
--- NOTE | 2018-07-08 17:00 | P.HP ---
Certification for Inpatient Patient admitted to: Observation With expected LOS: <2 Midnights Patient will require the following post-hospital care: None Practitioner: I am a practitioner with admitting privileges, knowledge of patient current condition, hospital course, and medical plan of care. Services: Services provided to patient in accordance with Admission requirements found in Title 42 Section 412.3 of the Code of Federal Regulations Patient History Date of Service: 07/08/18 Primary Care Provider: Dr Garcia Reason for admission: Chest Discomfort History of Present Illness: 67-year-old male with significant past medical history of hypertension, hyperlipidemia, CAD with recent CABG x1 2 months ago. Patient presented to the ED complaining of having some right upper quadrant pain that was radiating to his back. Pain has been going on an off for about 3 weeks however got progressively worse today where he was radiating to his left chest area and thus the family decided to bring him and given the history of CABG recently. Patient stated that he also had some nausea vomiting about 3 days ago and has since then been resolved. Patient denies having any fever chills shortness of breath at this time. Patient stated that he was finishing eating his milk and cereal along with a banana after which she started having the pain. Pain was sharp in nature. Patient has also been eating a lot of citrus items at home which includes [place] and oranges along with [place] and caffeine as well. In the ER patient had extensive lab work and imaging done. Troponin x1 was negative. Given the recent history of CABG and chest pain patient was admitted to the hospital for ACS rule out. Abdominal ultrasound was done to rule out any gallbladder disease. Abdominal ultrasound was negative for any acute abnormality. I personally contacted cardiology who recommended to observe the patient here in the hospital for 24 hr to get troponin x 2 and cardiology consultation. Allergies No Known Drug Allergies Allergy (Verified 05/09/17 16:57) Unknown Home Medications: Aspirin 81 mg PO DAILY 07/08/18 Atorvastatin Calcium [Lipitor] 40 mg PO BEDTIME 07/08/18 Clopidogrel Bisulfate [Plavix] 75 mg PO DAILY 07/08/18 Docosahexanoic AC/Epa [Fish Oil 1,000 MG*] 1,000 mg PO DAILY 07/08/18 Fenofibrate [Tricor] 145 mg PO DAILY 07/08/18 Metoprolol Tartrate [Lopressor] 25 mg PO BID 07/08/18 - Past Medical/Surgical History Diabetic: No -: Hypertension -: Hyperlipidemia -: LA -: Shoulder repair surgery -: Cardiac stents -: [place] teeth removal -: Tracheotomy - Family History Family History: Reviewed- Non-Contributory - Family History Mother -: Diabetes Notes: Bilaterall leg amputation from diabetes complications - Social History Smoking Status: Never smoker Counseled patient to stop smoking for: less than 10 minutes Smoking therapy provided: No Patient receptive to therapy: No Alcohol use: No CD- Drugs: No Caffeine use: Yes Place of Residence: Home Review of Systems 10-point ROS is otherwise unremarkable Physical Examination - Physical Exam General: Alert, In no apparent distress, Obese Respiratory: Clear to auscultation bilaterally, Normal air movement Cardiovascular: Regular rate/rhythm, Normal S1 S2 Gastrointestinal: Normal bowel sounds, No tenderness Musculoskeletal: No tenderness Integumentary: No rashes Neurological: Normal gait, Normal speech, Normal strength at 5/5 x4 extr, Normal tone, Normal affect Lymphatics: No axilla or inguinal lymphadenopathy - Studies Laboratory Data (last 24 hrs) 07/08/18 15:40: PT 13.1 H, INR 1.11 07/08/18 14:58: Sodium 145, Potassium 4.2, BUN 17, Creatinine 0.94, Glucose 100 , Magnesium 2.5 H, Total Bilirubin 0.2, AST 10 L, ALT 14, Alkaline Phosphatase 88, Lipase 83 07/08/18 14:56: WBC 13.9 H, Hgb 11.9 L, Hct 36.6 L, Plt Count 307 D Assessment and Plan - Problems (Diagnosis) (1) Chest pain Onset Date: 05/10/17 Current Visit: No Status: Acute Plan: Atypical chest discomfort. Most likely secondary to reflux disease however patient with high risk with previous history of LA and status post CABG 2 months ago -troponin x1 negative in the ER. EKG negative for any acute abnormality -will repeat troponin x2 here in the hospital -cardiology consultation. Awaiting recommendations at this -will rule out patient for ACS and discharge in next 24 hr if negative workup Qualifiers: Chest pain type: other chest pain Qualified Code(s): R07.89 - Other chest pain; R07.8 - Other chest pain (2) HTN (hypertension) Current Visit: Yes Status: Chronic Plan: Restart home medication Qualifiers: Hypertension type: essential hypertension Qualified Code(s): I10 - Essential (primary) hypertension (3) CAD (coronary artery disease) Current Visit: Yes Status: Chronic Plan: Will restart home medication Qualifiers: Coronary Disease-Associated Artery/Lesion type: [place] artery [place] vs. transplanted heart: [place] heart Associated angina: without angina Qualified Code(s): I25.10 - Atherosclerotic heart disease of [place] coronary artery without angina pectoris - Plan Admit to [facility] for chest pain ACS rule out with high risk factors. Cardiology consultation and repeat troponin x2 Discharge Plan: Home Plan to discharge in: 24 Hours - Advance Directives Does patient have a Living Will: No Does patient have a Durable POA for Healthcare: No - Code Status/Comfort Care Code Status Assessed: Yes Critical Care: No
--- NOTE | 2018-07-08 17:57 | RAD REPORT ---
EXAM DESCRIPTION: US - Abdomen Exam Limited - 07/08/2018 5:44 pm CLINICAL HISTORY: ABD PAIN COMPARISON: Renal Ultrasound-Complete dated 05/11/2017 FINDINGS: The gallbladder demonstrates no gallstones. No pericholecystic fluid or gallbladder wall t hickening. The common bile duct is normal measuring 4 mm. The liver demonstrates no findings of intrahepatic biliary dilatation. IMPRESSION: Unremarkable examination.
[2018-07-08] MEDS ORDERED: ONDANSETRON 4 MG/2 ML VIAL IV PRN (18:46)
[2018-07-08 19:01] VITALS: O2SAT 99
[2018-07-08 19:21] VITALS: BMI 23.3
[2018-07-08] MEDS ORDERED: ACETAMINOPHEN 325 MG TABLET PO PRN (20:17)
[2018-07-08] MEDS: DOCOSAHEXANOIC AC/EPA 1000 MG PO SCH (20:55)
[2018-07-08] MEDS: PANTOPRAZOLE 40MG TABLET PO SCH (20:55)
[2018-07-08] MEDS ORDERED: ATORVASTATIN 40 MG TAB PO SCH (21:00)
[2018-07-08] MEDS ORDERED: MORPHINE 2 MG/ML SYR IV PRN (22:40)
[2018-07-09] MEDS ORDERED: METOPROLOL TAR 25 MG TAB PO SCH (06:00)
[2018-07-09] MEDS ORDERED: NA CHLORIDE 0.9% 1,000 ML IV SCH (06:00)
[2018-07-09 07:04] LABS: Absolute Lymphocytes (CBC) 3.4 K/uL (0.7-4.9); Absolute Monocytes 0.5 K/uL (0.1-1.3); Absolute Neutrophil 6.2 K/uL (1.8-8.0); Basophils % 0.5 % (0-1.3); Eosinophils % 3.2 % (0-4.4); Hematocrit 35.3 % (39.6-49.0); Lymphocytes % 32.9 % (15.3-44.8); MPV 9.2 fL (7.6-11.3); Monocytes % 4.3 % (3.3-12.3); RBC Red Blood Cell Count 4.06 M/uL (4.33-5.43)
[2018-07-09 07:22] LABS: ALT/SGPT 14 U/L (12-78); AST/SGOT 14 U/L (15-37); Albumin 3.5 g/dL (3.4-5.0); Alkaline Phosphatase 80 U/L (45-117); BUN Blood Urea Nitrogen 14 mg/dL (7-18); Bicarbonate 25 mmol/L (21-32); Bilirubin Total 0.2 mg/dL (0.2-1.0); Glucose Level 88 mg/dL (74-106); HDL Cholesterol 27 mg/dL (40-60); LDL Cholesterol, Calculated 40 (<130); Potassium 4.1 mmol/L (3.5-5.1); Protein, Total 6.9 g/dL (6.4-8.2); Sodium Level 144 mmol/L (136-145)
[2018-07-09] MEDS ORDERED: MORPHINE 4 MG/ML SYR IV PRN (07:46)
[2018-07-09] MEDS: PANTOPRAZOLE 40MG TABLET PO SCH (07:49)
[2018-07-09] MEDS: DOCOSAHEXANOIC AC/EPA 1000 MG PO SCH (07:54)
[2018-07-09 08:47] VITALS: BP 116/51; TEMP 96.9
[2018-07-09] MEDS ORDERED: ASPIRIN EC 81 MG TAB PO SCH (09:00)
[2018-07-09] MEDS ORDERED: ENOXAPARIN 40 MG/0.4 ML SQ SCH (09:00)
[2018-07-09] MEDS ORDERED: CLOPIDOGREL 75 MG TABLET PO SCH (09:00)
[2018-07-09] MEDS ORDERED: FENOFIBRATE 160 MG TAB PO SCH (09:00)
--- NOTE | 2018-07-09 12:00 | P.SSS ---
Patient History Date of Service: 07/09/18 Primary Care Provider: Dr Garcia Reason for admission: Chest Discomfort History of Present Illness: 67-year-old male with significant past medical history of hypertension, hyperlipidemia, CAD with recent CABG x1 2 months ago. Patient presented to the ED complaining of having some right upper quadrant pain that was radiating to his back. Pain has been going on an off for about 3 weeks however got progressively worse today where he was radiating to his left chest area and thus the family decided to bring him and given the history of CABG recently. Patient stated that he also had some nausea vomiting about 3 days ago and has since then been resolved. Patient denies having any fever chills shortness of breath at this time. Patient stated that he was finishing eating his milk and cereal along with a banana after which she started having the pain. Pain was sharp in nature. Patient has also been eating a lot of citrus items at home which includes [place] and oranges along with [place] and caffeine as well. In the ER patient had extensive lab work and imaging done. Troponin x1 was negative. Given the recent history of CABG and chest pain patient was admitted to the hospital for ACS rule out. Abdominal ultrasound was done to rule out any gallbladder disease. Abdominal ultrasound was negative for any acute abnormality. I personally contacted cardiology who recommended to observe the patient here in the hospital for 24 hr to get troponin x 2 and cardiology consultation. Allergies No Known Drug Allergies Allergy (Verified 05/09/17 16:57) Unknown Home Medications: Aspirin 81 mg PO DAILY 07/08/18 Atorvastatin Calcium [Lipitor] 40 mg PO BEDTIME 07/08/18 Docosahexanoic AC/Epa [Fish Oil 1,000 MG*] 1,000 mg PO DAILY 07/08/18 Fenofibrate [Tricor*] 145 mg PO DAILY 07/08/18 Metoprolol Tartrate [Lopressor*] 25 mg PO BID 07/08/18 Pantoprazole [Protonix Tab*] 40 mg PO DAILYAC #30 tab 07/09/18 - Past Medical/Surgical History Has patient received pneumonia vaccine in the past: Yes Diabetic: No -: Hypertension -: Hyperlipidemia -: [place] -: triple bypass -: Shoulder repair surgery -: Cardiac stents -: [place] teeth removal -: Tracheotomy - Family History Family History: Reviewed- Non-Contributory - Family History Mother -: Diabetes Notes: Bilaterall leg amputation from diabetes complications - Social History Smoking Status: Former smoker Alcohol use: No CD- Drugs: No Caffeine use: Yes Place of Residence: Home Review of Systems 10-point ROS is otherwise unremarkable Physical Examination - Vital Signs Temperature: 96.9 F Blood Pressure: 116/51 Pulse: 52 Respirations: 18 Pulse Ox (%): 100 - Physical Exam General: Alert, In no apparent distress HEENT: Atraumatic, PERRLA, Mucous membr. moist/pink, EOMI, Sclerae nonicteric Neck: Supple, 2+ carotid pulse no bruit, No LAD, Without JVD or thyroid abnormality Respiratory: Clear to auscultation bilaterally, Normal air movement Cardiovascular: Regular rate/rhythm, Normal S1 S2 Gastrointestinal: Normal bowel sounds, No tenderness Musculoskeletal: No tenderness Integumentary: No rashes Neurological: Normal gait, Normal speech, Normal strength at 5/5 x4 extr, Normal tone, Normal affect Lymphatics: No axilla or inguinal lymphadenopathy - Studies Laboratory Data (last 24 hrs) 07/08/18 15:40: PT 13.1 H, INR 1.11 07/08/18 14:58: Sodium 145, Potassium 4.2, BUN 17, Creatinine 0.94, Glucose 100 , Magnesium 2.5 H, Total Bilirubin 0.2, AST 10 L, ALT 14, Alkaline Phosphatase 88, Lipase 83 07/08/18 14:56: WBC 13.9 H, Hgb 11.9 L, Hct 36.6 L, Plt Count 307 D - Diagnosis (Problem(s)) (1) Chest pain Onset Date: 05/10/17 Current Visit: No Status: Acute Plan: Patient seen and evaluated here by cardiology. Troponin x2 negative. Patient' s chest pain most likely secondary to musculoskeletal pain due to heavy lifting at home versus reflux. Educated extensively on the cardiac rehab program along with the need for Protonix at home. Qualifiers: Chest pain type: other chest pain Qualified Code(s): R07.89 - Other chest pain; R07.8 - Other chest pain (2) HTN (hypertension) Current Visit: Yes Status: Chronic Qualifiers: Hypertension type: essential hypertension Qualified Code(s): I10 - Essential (primary) hypertension (3) CAD (coronary artery disease) Current Visit: Yes Status: Chronic Qualifiers: Coronary Disease-Associated Artery/Lesion type: [place] artery [place] vs. transplanted heart: [place] heart Associated angina: without angina Qualified Code(s): I25.10 - Atherosclerotic heart disease of [place] coronary artery without angina pectoris Treatment Summary: Patient okayed to be Dc home now. Troponin x2 negative. EKG with no new changes. Cardiology consultation obtained. Patient will follow up with cardiology in about 2 weeks post discharge. Patient to inquire about enrolling in cardiac rehab program. Educated on medication compliance diet and exercise. Given prescription for Protonix as well. - Disposition Disposition: ROUTINE DISCHARGE Condition: GOOD Diet: Regular Activity: Ad seema
--- NOTE | 2018-07-09 17:03 | CON ---
Date of Consultation: 07/09/[address] Arora on 07/08/2018. I saw the patient on 07/09/2018. Reason For Consultation: Chest pain. History Of Present Illness: Mr. Goncalves is a 67-year-old Latin-Malaysian male, who has undergone bypas s surgery over the last few weeks at the [facility] in [place]. He has a history of dyslipidemia, hypert ension and cholesterol as well as triglycerides. He came in complaining of multiple symptoms includi ng nausea, diaphoresis, mid-epigastric chest burning with and without exertion. He also had some rig ht-sided chest pain radiating to the back. Denied PND, orthopnea, pedal edema, palpitations, or sync ope. Denied any fever or chills. Denied any weakness. The patient is back to driving and doing phy sical activities. He has already ruled out for an LA by the time I saw him. Past Medical History: Includes CAD, status post CABG recently, hypertension, dyslipidemia, high trig lyceride. Medications: At home include aspirin, Plavix, Lipitor, Tricor, and metoprolol. Review of Systems: Negative. Social History: Negative for tobacco. Family History: Positive for heart disease. Physical Examination: Vital Signs: Stable. He was afebrile. HEENT: Negative. Neck: Supple without any bruit, lymphadenopathy, JVD, or thyromegaly. Chest: Clear to auscultation, percussion. Cardiac: Revealed normal rhythm and rate. No gallops, murmurs, or rubs. Abdomen: Benign. Extremities: Revealed no clubbing, cyanosis, or edema. Diagnostic Data: All within normal limits. Impression And Plan: 1.Atypical chest pain, possibly a combination of musculoskeletal chest pain causing his right-sided chest pain going to the back, also possibly related to reflux with mid-epigastric chest burning and n ausea and diaphoresis with and without exertion. I recommended we stop his Plavix, put him on pantop razole, and see how he does, and he will follow up with us in the next 2-3 weeks. 2.Hypertension, well controlled. 3.Coronary artery disease status post coronary artery bypass graft recently. 4.Dyslipidemia, well controlled. TYESHA/DAMI Voice ID: [id number] Report ID: [id number]
== END 2018-07-09 11:41 | disposition home or self-care (01) ==
LOC: ER 13:34 → ERHOLD 17:09 → 4TH 18:18
PROVIDERS: ADMIT Family Medicine; ATTEND Family Medicine
DX: R07.89 Other chest pain (principal); R11.10 Vomiting, unspecified; I10 Essential (primary) hypertension; I25.10 Atherosclerotic heart disease of native coronary artery without angina pectoris; E78.5 Hyperlipidemia, unspecified; E78.00 Pure hypercholesterolemia, unspecified; I25.2 Old myocardial infarction; Z79.82 Long term (current) use of aspirin; Z79.02 Long term (current) use of antithrombotics/antiplatelets; Z79.899 Other long term (current) drug therapy; Z95.1 Presence of aortocoronary bypass graft; Z95.5 Presence of coronary angioplasty implant and graft; Z87.891 Personal history of nicotine dependence
CPT/HCPCS: 93005; 85025 ×2; 80048; 36415; 83735; 85610; 80061; 80076; 84484 ×3; 83690; 80053; 83880; 71045; 76705; 96375; 96374; 99285; J1650; J2270 ×2; J7030 ×2; J2405; G0378 ×2

== ENCOUNTER 2018-10-21 08:24 | Observation (INO) | payer OTHER ==
--- OUTSIDE RECORDS SUMMARY | 2018-10-21 08:26 | XMS REPORT ---
:1950 Author Organization [facility] Address [address] [place]. [address] [place] [id number] Care Team Providers Name Role Phone Unavailable Unavailable Unavailable Problems This patient has no known problems. Allergies, Adverse Reactions, Alerts This patient has no known allergies or adverse reactions. Medications This patient has no known medications.
--- NOTE | 2018-10-21 09:03 | ER ---
Nurse's Notes [facility] Name: Jacob Goncalves Age: 67 yrs Sex: Male : 1950 Arrival Date: 10/21/2018 Time: 08:26 Bed 14 Private MD: Diagnosis: Chest pain, unspecified;Essential (primary) hypertension;Dyspnea Presentation: 10/21 08:37 Presenting complaint: Patient states: chest tightness, SOB, epigastric pain since iw yesterday, pt states "when I breathe in, it tightens up on me", pain radiates to thad shoulders, +cough, nonproductive, no fever, hx of [place] X 2, triple bypass 2 months ago at [facility], sees Dr. Murillo. Transition of care: patient was not received from another setting of care. Onset of symptoms was October 20, 2018. Risk Assessment: Do you want to hurt yourself or someone else? Patient reports no desire to harm self or others. Initial Sepsis Screen: Does the patient meet any 2 criteria? No. Patient's initial sepsis screen is negative. Does the patient have a suspected source of infection? No. Patient's initial sepsis screen is negative. Care prior to arrival: None. 08:37 Method Of Arrival: Ambulatory iw 08:37 Acuity: EVA 2 iw Historical: - Allergies: 08:40 Ibuprofen; iw - PMHx: 08:40 High Cholesterol; Hypertension; Myocardial infarction; iw - PSHx: 08:40 left lower leg surgery for injury with saw (2008); neck surgery; CABG; Heart stents; iw - Immunization history:: Adult Immunizations up to date. - Social history:: Smoking status: Patient/guardian denies using tobacco. - Ebola Screening: : Patient negative for fever greater than or equal to 101.5 degrees Fahrenheit, and additional compatible Ebola Virus Disease symptoms Patient denies exposure to infectious person Patient denies travel to an Ebola-affected area in the 21 days before illness onset No symptoms or risks identified at this time. - Family history:: not pertinent. Screenin:59 Abuse screen: Denies threats or abuse. Denies injuries from another. Nutritional ph screening: No deficits noted. Tuberculosis screening: No symptoms or risk factors identified. Fall Risk None identified. Assessment: 09:00 General: Appears in no apparent distress. comfortable, obese, Behavior is calm, ph cooperative, appropriate for age. Pain: Pain: Complains of pain in mid-sternal area Pain does not radiate. Pain began 1 day ago. 09:00 Neuro: Level of Consciousness is awake, alert, obeys commands, Oriented to person, ph place, time, situation. Cardiovascular: Reports chest pain, shortness of breath, Denies diaphoresis, nausea, vomiting, Capillary refill < 3 seconds in bilateral fingers Patient's skin is warm and dry. Rhythm is sinus rhythm. Respiratory: Airway is patent Respiratory effort is even, unlabored, Respiratory pattern is regular, symmetrical. Derm: Skin is intact, Skin is pink, warm \\T\\ dry. 10:36 Reassessment: Patient appears in no apparent distress at this time. Patient and/or ph family updated on plan of care and expected duration. Pain level reassessed. Patient is alert, oriented x 3, equal unlabored respirations, skin warm/dry/pink. Unable to obtain IV access on pt, pt taken for ECHO via wheelchair. 11:30 Reassessment: Patient appears in no apparent distress at this time. Patient and/or ph family updated on plan of care and expected duration. Pain level reassessed. Patient is alert, oriented x 3, equal unlabored respirations, skin warm/dry/pink. 12:30 Reassessment: Patient appears in no apparent distress at this time. Patient and/or ph family updated on plan of care and expected duration. Pain level reassessed. Patient is alert, oriented x 3, equal unlabored respirations, skin warm/dry/pink. 14:00 Reassessment: Patient appears in no apparent distress at this time. Patient and/or ph family updated on plan of care and expected duration. Pain level reassessed. Patient is alert, oriented x 3, equal unlabored respirations, skin warm/dry/pink. Report called to Karin ORTIZ on 2nd floor, pt taken to room via wheelchair. Vital Signs: 08:41 BP 157 / 88; Pulse 67; Resp 16; Temp 98.0; Pulse Ox 100% on R/A; Weight 70.31 kg; iw Height 5 ft. 5 in. (165.10 cm); Pain 7/10; 10:01 BP 144 / 76; Pulse 63; Resp 17; Temp 98.0(TE); Pulse Ox 98% on R/A; mh5 11:00 BP 142 / 78; Pulse 61; Resp 18; Pulse Ox 99% on R/A; ph 12:29 BP 145 / 65; Pulse 56; Resp 18; Temp 97.8; Pulse Ox 100% on R/A; ph 13:48 BP 148 / 82; Pulse 63; Resp 16; Temp 98.2(TE); Pulse Ox 98% on R/A; mh5 08:41 Body Mass Index 25.79 (70.31 kg, 165.10 cm) iw ED Course: 08:26 Patient arrived in ED. as 08:36 Patient has correct armband on for positive identification. Bed in low position. Call mh5 light in reach. Adult w/ patient. Warm blanket given. molder setter on. Pulse ox on. NIBP on. 08:38 Jose Flowers MD is Attending Physician. anthony 08:40 Triage completed. iw 08:41 Arm band placed on. iw 08:56 Chitra Fregoso RN is Primary Nurse. ph 08:58 Ralph Neves MD is Hospitalizing Provider. anthony 09:00 Patient maintains SpO2 saturation greater than 95% on room air. ph 09:03 Radiology exam delayed due to lab results not completed at this time. (BUN/Creatinine). vm2 09:03 X-ray completed. Portable x-ray completed in exam room. Patient tolerated procedure jf well. 09:37 Missed attempt(s): 24 gauge in right upper arm. Bleeding controlled, band aid applied, iw catheter tip intact. 10:30 Missed attempt(s): 20 gauge in left EJ per Dr Flowers. Bleeding controlled, band aid ph applied, catheter tip intact. Missed attempt(s): 20 gauge in right EJ per Dr Flowers. 10:35 Missed attempt(s): 22 gauge in right foot. Bleeding controlled, band aid applied, ph catheter tip intact. 10:50 XRAY Chest (1 view) In Process Unspecified. EDMS 11:54 Extremity Venous W Compression Bilateral US In Process Unspecified. EDMS 12:15 Inserted saline lock: 20 gauge in right antecubital area, using aseptic technique. ph Blood collected. Accessed peripheral vein via ultrasound, utilizing dynamic ultrasound technique Good blood return. Flushes easily. 13:23 Note: VQ SCAN COMPLETE. NO CHANGE IN PT STATUS. RETURNED TO ED. NURSE NOTIFIED. jf MCLEMONS, RT(N), C[employer]ON STENCILER. 14:00 No provider procedures requiring assistance completed. Patient admitted, IV remains in ph place. Administered Medications: 12:27 Drug: Lovenox 1 mg/kg Route: Sub-Q; Site: right lower abdomen; ph 13:00 Follow up: Response: No adverse reaction ph 12:28 Drug: Aspirin 81 mg Route: PO; ph 13:00 Follow up: Response: No adverse reaction ph 12:52 Drug: Zofran 4 mg Route: IVP; Site: right antecubital; ph 13:30 Follow up: Response: No adverse reaction ph 12:55 Drug: morphine 2 mg Route: IVP; Site: right antecubital; ph 13:20 Follow up: Response: No adverse reaction; Pain is decreased; RASS: Alert and Calm (0) ph 12:55 Drug: Pepcid 20 mg Route: IVP; Site: right antecubital; ph 13:30 Follow up: Response: No adverse reaction ph Outcome: 08:59 Decision to Hospitalize by Provider. [facility] 14:00 Admitted to Tele accompanied by tech, family with patient, via wheelchair, with chart. 14:00 Condition: stable 14:00 Instructed on the need for admit. 14:07 Patient left the ED. Signatures: Dispatcher [employer] EDJose Flores MD MD cha Martinez, Amelia as Williams, Irene, RN ANGEL Chitra Fregoso RN RN ph Martinez, Maria [facility] Nhung Bill[place]2 Tonio Ruiz [employer]rections: (The following items were deleted from the chart) 18:46 09:00 Pain: Complains of pain in mid-sternal area ph
--- NOTE | 2018-10-21 09:05 | EDPHYS ---
Physician Documentation [facility] Name: Jacob Goncalves Age: 67 yrs Sex: Male : 1950 Arrival Date: 10/21/2018 Time: 08:26 Bed 14 Private MD: ED Physician Jose Flowers HPI: 10/21 08:54 This 67 yrs old Male presents to ER via Ambulatory with complaints of Chest anthony Pain. 08:54 The patient or guardian reports chest pain that is located primarily in the substernal anthony area. Onset: 1 day(s) ago. The pain does not radiate. Associated signs and symptoms: Pertinent positives: lightheadedness, shortness of breath. The chest pain is described as a pressure, squeezing. Modifying factors: The symptoms are alleviated by application of supplemental oxygen, remaining still, rest, the symptoms are aggravated by nothing. Severity of pain: At its worst the pain was mild in the emergency department the pain is unchanged. The patient has not experienced similar symptoms in the past. Historical: - Allergies: 08:40 Ibuprofen; iw - PMHx: 08:40 High Cholesterol; Hypertension; Myocardial infarction; iw - PSHx: 08:40 left lower leg surgery for injury with saw (2008); neck surgery; CABG; Heart stents; iw - Immunization history:: Adult Immunizations up to date. - Social history:: Smoking status: Patient/guardian denies using tobacco. - Ebola Screening: : Patient negative for fever greater than or equal to 101.5 degrees Fahrenheit, and additional compatible Ebola Virus Disease symptoms Patient denies exposure to infectious person Patient denies travel to an Ebola-affected area in the 21 days before illness onset No symptoms or risks identified at this time. - Family history:: not pertinent. ROS: 08:54 Constitutional: Negative for fever, chills, and weight loss, Eyes: Negative for injury, anthony pain, redness, and discharge, ENT: Negative for injury, pain, and discharge, Neck: Negative for injury, pain, and swelling, Respiratory: Negative for shortness of breath, cough, wheezing, and pleuritic chest pain, Abdomen/GI: Negative for abdominal pain, nausea, vomiting, diarrhea, and constipation, Back: Negative for injury and pain, : Negative for injury, bleeding, discharge, and swelling, MS/Extremity: Negative for injury and deformity, Skin: Negative for injury, rash, and discoloration, Neuro: Negative for headache, weakness, numbness, tingling, and seizure, Psych: Negative for depression, anxiety, suicide ideation, homicidal ideation, and hallucinations, Allergy/Immunology: Negative for hives, rash, and allergies, Endocrine: Negative for neck swelling, polydipsia, polyuria, polyphagia, and marked weight changes, Hematologic/Lymphatic: Negative for swollen nodes, abnormal bleeding, and unusual bruising. 08:54 Cardiovascular: Positive for chest pain. 08:54 Respiratory: Positive for shortness of breath. Exam: 08:54 Constitutional: This is a well developed, well nourished patient who is awake, alert, anthony and in no acute distress. Head/Face: Normocephalic, atraumatic. Eyes: Pupils equal round and reactive to light, extra-ocular motions intact. Lids and lashes normal. Conjunctiva and sclera are non-icteric and not injected. Cornea within normal limits. Periorbital areas with no swelling, redness, or edema. ENT: Nares patent. No nasal discharge, no septal abnormalities noted. Tympanic membranes are normal and external auditory canals are clear. Oropharynx with no redness, swelling, or masses, exudates, or evidence of obstruction, uvula midline. Mucous membranes moist. Neck: Trachea midline, no thyromegaly or masses palpated, and no cervical lymphadenopathy. Supple, full range of motion without nuchal rigidity, or vertebral point tenderness. No Meningismus. Chest/axilla: Normal chest wall appearance and motion. Nontender with no deformity. No lesions are appreciated. Cardiovascular: Regular rate and rhythm with a normal S1 and S2. No gallops, murmurs, or rubs. Normal PMI, no JVD. No pulse deficits. Respiratory: Lungs have equal breath sounds bilaterally, clear to auscultation and percussion. No rales, rhonchi or wheezes noted. No increased work of breathing, no retractions or nasal flaring. Abdomen/GI: Soft, non-tender, with normal bowel sounds. No distension or tympany. No guarding or rebound. No evidence of tenderness throughout. Back: No spinal tenderness. No costovertebral tenderness. Full range of motion. Male : Normal genitalia with no discharge or lesions. Skin: Warm, dry with normal turgor. Normal color with no rashes, no lesions, and no evidence of cellulitis. MS/ Extremity: Pulses equal, no cyanosis. Neurovascular intact. Full, normal range of motion. Neuro: Awake and alert, GCS 15, oriented to person, place, time, and situation. Cranial nerves II-XII grossly intact. Motor strength 5/5 in all extremities. Sensory grossly intact. Cerebellar exam normal. Normal gait. Psych: Awake, alert, with orientation to person, place and time. Behavior, mood, and affect are within normal limits. Vital Signs: 08:41 BP 157 / 88; Pulse 67; Resp 16; Temp 98.0; Pulse Ox 100% on R/A; Weight 70.31 kg; iw Height 5 ft. 5 in. (165.10 cm); Pain 7/10; 10:01 BP 144 / 76; Pulse 63; Resp 17; Temp 98.0(TE); Pulse Ox 98% on R/A; mh5 11:00 BP 142 / 78; Pulse 61; Resp 18; Pulse Ox 99% on R/A; ph 12:29 BP 145 / 65; Pulse 56; Resp 18; Temp 97.8; Pulse Ox 100% on R/A; ph 13:48 BP 148 / 82; Pulse 63; Resp 16; Temp 98.2(TE); Pulse Ox 98% on R/A; mh5 08:41 Body Mass Index 25.79 (70.31 kg, 165.10 cm) iw MDM: 08:38 Patient medically screened. [facility] 08:58 Data reviewed: vital signs, nurses notes, lab test result(s), EKG, radiologic studies, [facility] CT scan, plain films. 10/21 08:33 Order name: Basic Metabolic Panel; Complete Time: 11:51 snw 10/21 08:33 Order name: CBC with Diff snw 10/21 08:33 Order name: LFT's; Complete Time: 11:51 snw 10/21 08:33 Order name: Magnesium; Complete Time: 11:51 snw 10/21 08:33 Order name: NT PRO-BNP; Complete Time: 11:51 snw 10/21 08:33 Order name: PT-INR snw 10/21 08:33 Order name: Troponin (emerg Dept Use Only); Complete Time: 11:51 snw 10/21 08:33 Order name: Lipid Profile; Complete Time: 11:51 snw 10/21 08:42 Order name: Lipase [facility] 10/21 08:42 Order name: Urine Culture [facility] 10/21 10:31 Order name: Lipase [facility] 10/21 11:16 Order name: LDL, Direct; Complete Time: 11:51 EDW[place] 10/21 11:25 Order name: Urine Dipstick--Ancillary (enter results) 10/21 11:52 Order name: Urine Dipstick-Ancillary [facility] 10/21 08:33 Order name: XRAY Chest (1 view) [facility] 10/21 08:33 Order name: EKG; Complete Time: 08:38 snw 10/21 08:33 Order name: Cardiac monitoring; Complete Time: 08:41 snw 10/21 08:33 Order name: EKG - Nurse/Tech; Complete Time: 08:41 snw 10/21 09:35 Order name: Echo w/ Doppler [facility] 10/21 10:14 Order name: VQ scan (Nuclear Medicine) 10/21 10:14 Order name: Extremity Venous W Compression Bilateral US 10/21 13:40 Order name: NM [facility] 10/21 08:33 Order name: O2 Per Protocol; Complete Time: 08:41 snw 10/21 08:33 Order name: O2 Sat Monitoring; Complete Time: 08:41 sn 10/21 09:28 Order name: Labs - recollect needed; Complete Time: 13:04 bd Administered Medications: 12:27 Drug: Lovenox 1 mg/kg Route: Sub-Q; Site: right lower abdomen; ph 13:00 Follow up: Response: No adverse reaction ph 12:28 Drug: Aspirin 81 mg Route: PO; ph 13:00 Follow up: Response: No adverse reaction ph 12:52 Drug: Zofran 4 mg Route: IVP; Site: right antecubital; ph 13:30 Follow up: Response: No adverse reaction ph 12:55 Drug: morphine 2 mg Route: IVP; Site: right antecubital; ph 13:20 Follow up: Response: No adverse reaction; Pain is decreased; RASS: Alert and Calm (0) ph 12:55 Drug: Pepcid 20 mg Route: IVP; Site: right antecubital; ph 13:30 Follow up: Response: No adverse reaction ph Disposition: 10/21/18 08:59 Hospitalization ordered by Ralph Neves for Inpatient Admission. Preliminary diagnosis are Chest pain, unspecified, Essential (primary) hypertension, Dyspnea. - Bed requested for Telemetry/MedSurg (Inpatient). - Status is Inpatient Admission. ph - Condition is Fair. - Problem is new. - Symptoms have improved. UTI on Admission? No Signatures: Dispatcher [employer] EDMS NilsaRenuCheriJose Quinteros MD MD cha Therrien, Shelly, CAREERS ADVISER-C CAREERS ADVISER-Csnw Shahla Ackerman, ANGEL RN Chitra Fregoso RN RN ph Corrections: (The following items were deleted from the chart) 11:52 08:59 Hospitalization Ordered by Ralph Neves MD for Inpatient Admission. Preliminary bd diagnosis is Chest pain, unspecified; Essential (primary) hypertension; Dyspnea. Bed requested for Telemetry/MedSurg (Inpatient). Status is Inpatient Admission. Condition is Fair. Problem is new. Symptoms have improved. UTI on Admission? No. anthony 14:07 11:52 10/21/2018 08:59 Hospitalization Ordered by Ralph Neves MD for Inpatient ph Admission. Preliminary diagnosis is Chest pain, unspecified; Essential (primary) hypertension; Dyspnea. Bed requested for Telemetry/MedSurg (Inpatient). Status is Inpatient Admission. Condition is Fair. Problem is new. Symptoms have improved. UTI on Admission? No. bd
[2018-10-21] MEDS ORDERED: ASPIRIN 81 MG CHEWABLE TABLET ONE (09:18)
[2018-10-21] MEDS ORDERED: FAMOTIDINE 20 MG/2 ML VIAL IV ONE (09:19)
[2018-10-21] MEDS ORDERED: ONDANSETRON 4 MG/2 ML VIAL ONE (09:19)
[2018-10-21] MEDS ORDERED: MORPHINE 2 MG/ML SYR ONE (09:19)
[2018-10-21] MEDS ORDERED: ENOXAPARIN 80 MG/0.8 ML SQ ONE (09:19)
--- NOTE | 2018-10-21 10:42 | RAD REPORT ---
EXAM DESCRIPTION: RAD - Chest Single View - 10/21/2018 9:04 am CLINICAL HISTORY: Chest pain COMPARISON: Portable chest June 2018 TECHNIQUE: AP portable chest image was obtained 0859 hours . FINDINGS: Lungs are clear. Heart and vasculature are normal. No measurable pleural effusion and no p neumothorax. No acute bony abnormality seen. No acute aortic findings. Sternotomy wires are in place. . IMPRESSION: No acute cardiopulmonary process. No significant interval change.
[2018-10-21 10:53] LABS: ALT/SGPT 45 U/L (12-78); AST/SGOT 30 U/L (15-37); Albumin 4.3 g/dL (3.4-5.0); Alkaline Phosphatase 145 U/L (45-117); BUN Blood Urea Nitrogen 12 mg/dL (7-18); Bicarbonate 23 mmol/L (21-32); Bilirubin Direct < 0.1 mg/dL (0-0.2); Bilirubin Total 0.5 mg/dL (0.2-1.0); Glucose Level 112 mg/dL (74-106); HDL Cholesterol 38 mg/dL (40-60); LDL Cholesterol, Calculated ND (<130); Magnesium 2.4 mg/dL (1.8-2.4); NT PRO-BNP 21 pg/mL (<125); Potassium 4.1 mmol/L (3.5-5.1); Protein, Total 8.4 g/dL (6.4-8.2); Sodium Level 146 mmol/L (136-145); Troponin (Emerg Dept Use Only) < 0.02 ng/mL (0.0-0.045)
[2018-10-21 11:07] LABS: LDL, Direct 138 mg/dL (100-129)
[2018-10-21] MEDS ORDERED: NITROGLYCERIN 0.4 MG/TAB SL PRN (11:33)
[2018-10-21 11:50] LABS: Urine Blood TRACE (NEG); Urine Glucose NEGATIVE (NEG); Urine Protein NEGATIVE (NEG); Urine Specific Gravity >1.030 (1.005-1.030); Urine pH 5.5 (5.0-7.0)
--- NOTE | 2018-10-21 12:11 | RAD REPORT ---
EXAM DESCRIPTION: USExtrem Venous W Compress Bil10/21/2018 11:54 am CLINICAL HISTORY: Leg pain COMPARISON: 2007 FINDINGS: The common femoral, superficial femoral, popliteal and posterior tibial veins bilaterally are compressible and demonstrate augmentation. Doppler demonstrates good flow. IMPRESSION: No evidence of deep venous thrombosis involving either lower extremity.
[2018-10-21 13:06] LABS: Absolute Lymphocytes (CBC) 2.9 K/uL (0.7-4.9); Hematocrit 39.9 % (39.6-49.0); Lymphocytes % 32.3 % (15.3-44.8); MPV 9.4 fL (7.6-11.3); RBC Red Blood Cell Count 4.66 M/uL (4.33-5.43)
[2018-10-21 13:09] LABS: Protime INR 1.03
--- NOTE | 2018-10-21 13:31 | EKG ---
Test Date: 2018-10-21 Test Time: 08:38:27 Punch Card Operator: BUCK MEASUREMENT RESULTS: Intervals: Rate: 66 LA: 170 QRSD: 88 QT: 430 QTc: 450 [place]: P: 13 LA: 170 QRS: -22 T: 75 INTERPRETIVE STATEMENTS: Normal sinus rhythm Inferior infarct, age undetermined Abnormal ECG Compared to ECG 07/08/2018 13:57:04 Myocardial infarct finding now present Sinus bradycardia no longer present Electronically Signed On 10-21-18 13:30:16 CDT by Jethro Murillo
--- NOTE | 2018-10-21 13:32 | RAD REPORT ---
EXAM DESCRIPTION: NM - Vent Perfusion VQ Scan - 10/21/2018 1:23 pm CLINICAL HISTORY: Chest pain COMPARISON: None. TECHNIQUE: The patient was administered 19.2 mCi Xenon 133 gas with posterior projection inspiration , equilibrium, and washout views obtained. The patient was then administered 7.1 mCi Tc-99m MAA label ed RBCs followed by standard 8 view protocol. FINDINGS: There is good distribution of the Xenon with no ventilation defects identified. Mild to mo derate diffuse air trapping throughout both lung gann. Perfusion images show no defects suspicious for pulmonary emboli. IMPRESSION: No evidence for pulmonary embolic disease. Mild to moderate air trapping throughout the lung gann.
--- NOTE | 2018-10-21 13:56 | ECHO ---
HEIGHT: 5 ft 5 in WEIGHT: 165 lb oz DATE OF STUDY: 10/21/[address]: Jose Flowers MD 2-DIMENSIONAL: YES M.MODE: YES DOPPLER: YES COLOR FLOW: YES TDS: YES PORTABLE: YES DEFINITY: NO BUBBLE STUDY: NO DIAGNOSIS: CHEST PAIN CARDIAC HISTORY: CATHERIZATION: YES SURGERY: YES PROSTHETIC VALVE: NO PACEMAKER: NO MEASUREMENTS (cm) DIASTOLIC (NORMALS) SYSTOLIC (NORMALS) IVSd 1.1 (0.6-1.2) LA Diam 3.3 (1.9-4.0) LVEF 61% LVIDd 4.0 (3.5-5.7) LVIDs 2.7 (2.0-3.5) %FS 32% LVPWd 1.2 (0.6-1.2) Ao Diam 3.3 (2.0-3.7) 2 DIMENSIONAL ASSESSMENT: RIGHT ATRIUM: NORMAL LEFT ATRIUM: NORMAL RIGHT VENTRICLE: NORMAL LEFT VENTRICLE: NORMAL TRICUSPID VALVE: NORMAL MITRAL VALVE: NORMAL PULMONIC VALVE: NORMAL AORTIC VALVE: MILD SCLEROSIS PERICARDIAL EFFUSION: NONE AORTIC ROOT: NORMAL. LEFT VENTRICULAR WALL MOTION: NORMAL. DOPPLER/COLOR FLOW: NO AORTIC STENOSIS OR AORTIC REGURGITATION. NORMAL CARDIAC DOPPLER. COMMENTS: NORMAL LEFT VENTRICULAR EJECTION FRACTION. AORTIC SCLEROSIS WITH NO AORTIC STENOSIS OR AORTIC REGURGITATION. NORMAL CARDIAC DOPPLER. TECHNOLOGIST: SANTANA PRINCE
[2018-10-21 14:23] VITALS: BMI 27.4
[2018-10-21] MEDS: MORPHINE 4 MG/ML SYR IV PRN ×3 (14:36→22:22)
[2018-10-21] MEDS: COLCHICINE 0.6 MG TAB PO SCH ×2 (14:36→22:16)
[2018-10-21] MEDS: CLOPIDOGREL 75 MG TABLET PO SCH ×2 (14:37→14:38)
[2018-10-21] MEDS: METOPROLOL TAR 25 MG TAB PO SCH ×2 (14:37→22:20)
--- NOTE | 2018-10-21 17:45 | CON ---
History Of Present Illness: Mr. Goncalves came to the hospital with chest pain. The pain started yeste rday. It is pleuritic. Every time he takes a deep breath, it hurts more and it hurts front and back and all over his chest. If he does not breathe deeply, he does not notice it. In June of this year or close to that time, he had coronary artery bypass surgery. Before that, he had a stent. He has b een in our hospital at least one other time since then. 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 A ventilation perfusion lung scan is low probability for pulmonary e mbolus and cardiac enzymes are normal. An echocardiogram shows no wall motion abnormality or any abn ormality at all. Medications: We have a list of medicines that the patient is supposed to be taking. I have a feelin g he is not taking it appropriately. His medications should include aspirin, Plavix, Lipitor, a beta -mary, but I am concerned that he is simply not taking his medicines appropriately. Social History: He uses no tobacco now. Does not have diabetes. He was a smoker in the remote past . Physical Examination: Vital Signs: He is 5 feet 5 inches. Blood pressure 157/88. He has a mildly increased body mass ind ex of 25.79. He is 70.3 kg. HEENT: Normal. Lungs: Clear. Heart: Within normal limits. I do not hear a pleural or pericardial friction rub. Abdomen: Soft. Extremities: Palpable distal pulses. No significant edema. Skin: Appears to be warm and well perfused. Laboratory Data: His hemoglobin is 13.2, white cell count 9000, platelet count 250,000. His triglyc erides are 444. This is a random lipid profile, nonfasting. His total cholesterol is 254, HDL is 38 . 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 No evidence of pulmonary embolus or pneumonia or myocardial infarction. No evidence of p ericarditis on our echocardiogram or chest x-ray. So, I am thinking it is nonspecific pain. A trial with colchicine could be done. We can look at cardiac enzymes, if they go up, we can switch course and do a cardiac cath on Wednesday. MINDY Voice ID: [id number] Report ID: [id number]
[2018-10-21 18:09] LABS: Absolute Lymphocytes (CBC) 3.4 K/uL (0.7-4.9); Basophils % 1.3 % (0-1.3); Hematocrit 37.8 % (39.6-49.0); Lymphocytes % 40.9 % (15.3-44.8); MPV 9.9 fL (7.6-11.3); RBC Red Blood Cell Count 4.45 M/uL (4.33-5.43)
--- NOTE | 2018-10-21 18:21 | P.HP ---
Certification for Inpatient Patient admitted to: Observation With expected LOS: <2 Midnights Practitioner: I am a practitioner with admitting privileges, knowledge of patient current condition, hospital course, and medical plan of care. Services: Services provided to patient in accordance with Admission requirements found in Title 42 Section 412.3 of the Code of Federal Regulations Patient History Date of Service: 10/21/18 Reason for admission: Chest pain History of Present Illness: This is a 67 yr male with a past medical history of hypertension, hyperlipidemia , CAD, history of CABG presented with chest pain. Per patient, he has been having substernal chest tightness and heaviness for the past day. He rates it as 7/10, his left arm feels heavy and tingly. He states this pain is also associated with shortness of breath, unable to draw breath in. This feeling/ pain started right after he woke up from sleep. There is no alleviating factors. This discomfort is worse with walking. He thought the pain would go away but it did not therefore he came to the emergency room. In the ER, blood pressure was 157/88, heart rate of 67, respirations of 16, afebrile, satting 100 % on room air. He has a BMI of 25.39. His labs were fairly unremarkable except for lipid panel in which his LDL was elevated along with cholesterol. His chest x-ray was without any acute abnormalities. His EKG with nonspecific changes. An echocardiogram was done, which showed 61% ejection fraction. At the time of my exam, he was alert oriented x3, in no acute distress and chest pain had improved to 5/10. Allergies ibuprofen Adverse Reaction (Verified 10/21/18 14:29) Nausea/Vomiting Home medications list reviewed: Yes Home Medications: Aspirin 81 mg PO DAILY 07/08/18 Atorvastatin Calcium [Lipitor] 80 mg PO BEDTIME 07/08/18 Docosahexanoic AC/Epa [Fish Oil 1,000 MG*] 1,000 mg PO DAILY 07/08/18 Fenofibrate [Tricor*] 145 mg PO DAILY 07/08/18 Metoprolol Tartrate [Lopressor*] 25 mg PO BID 07/08/18 Pantoprazole [Protonix Tab*] 40 mg PO DAILYAC #30 tab 07/09/18 Clopidogrel Bisulfate [Plavix] 75 mg PO DAILY 10/21/18 - Past Medical/Surgical History Has patient received pneumonia vaccine in the past: Yes Diabetic: No -: Hypertension -: Hyperlipidemia -: NV -: triple bypass -: Shoulder repair surgery -: Cardiac stents -: [place] teeth removal -: Tracheotomy - Family History Mother History Unknown: Yes -: Diabetes Notes: Bilaterall leg amputation from diabetes complications Father History Unknown: Yes -: Heart disease - Social History Smoking Status: Former smoker Alcohol use: No CD- Drugs: No Caffeine use: Yes Place of Residence: Home Review of Systems 10-point ROS is otherwise unremarkable Physical Examination - Vital Signs Temperature: 98.7 F Blood Pressure: 117/68 Pulse: 62 Respirations: 62 Pulse Ox (%): 98 - Physical Exam General: Alert, In no apparent distress, Oriented x3 HEENT: Atraumatic, PERRLA, Mucous membr. moist/pink, EOMI, Sclerae nonicteric Neck: Supple, 2+ carotid pulse no bruit, No LAD, Without JVD or thyroid abnormality Respiratory: Clear to auscultation bilaterally, Normal air movement Cardiovascular: Regular rate/rhythm, Normal S1 S2 Gastrointestinal: Normal bowel sounds, No tenderness Musculoskeletal: No tenderness Integumentary: No rashes Neurological: Normal gait, Normal speech, Normal strength at 5/5 x4 extr, Normal tone, Normal affect Lymphatics: No axilla or inguinal lymphadenopathy - Studies Laboratory Data (last 24 hrs) 10/21/18 09:10: Lipase 100 10/21/18 09:10: Sodium 146 H, Potassium 4.1, BUN 12, Creatinine 0.90, Glucose 112 H, Magnesium 2.4, Total Bilirubin 0.5, AST 30, ALT 45, Alkaline Phosphatase 145 H, Triglycerides 444 H, Cholesterol 254 H, LDL Cholesterol Direct 138 H, HDL Cholesterol 38 L, Cholesterol/HDL Ratio 6.68 Assessment and Plan - Problems (Diagnosis) (1) Chest pain Onset Date: 05/10/17 Current Visit: No Status: Acute Qualifiers: Chest pain type: other chest pain Qualified Code(s): R07.89 - Other chest pain; R07.8 - Other chest pain (2) CAD (coronary artery disease) Current Visit: No Status: Chronic Qualifiers: Coronary Disease-Associated Artery/Lesion type: [place] artery [place] vs. transplanted heart: [place] heart Associated angina: without angina Qualified Code(s): I25.10 - Atherosclerotic heart disease of [place] coronary artery without angina pectoris (3) HTN (hypertension) Current Visit: No Status: Chronic Qualifiers: Hypertension type: essential hypertension Qualified Code(s): I10 - Essential (primary) hypertension - Plan Admit to floor with tele -echo done, normal with ejection fraction 61% -troponin negative x1, trend -EKG with nonspecific changes -cardiology consulted, awaiting recommendation -chest pain guidelines: Aspirin, Plavix, statin, beta-mary, lisinopril -morphine as needed for pain. Nitro sublingual as needed Disposition: Pending cardiac workup. Anticipate discharge in the morning after cardiac evaluation is negative and cleared by Cardiology. Discharge Plan: Home Plan to discharge in: 24 Hours - Advance Directives Does patient have a Living Will: No Does patient have a Durable POA for Healthcare: No Time Spent Managing Pts Care (In Minutes): 45
[2018-10-21] MEDS ORDERED: ATORVASTATIN 40 MG TAB PO SCH (21:00)
[2018-10-21] MEDS ORDERED: ATORVASTATIN 80 MG TAB PO SCH (21:00)
[2018-10-22 00:56] VITALS: O2SAT 97
[2018-10-22] MEDS: MORPHINE 4 MG/ML SYR IV PRN (03:00)
[2018-10-22 06:54] LABS: Absolute Lymphocytes (CBC) 3.2 K/uL (0.7-4.9); Basophils % 0.9 % (0-1.3); Hematocrit 42.2 % (39.6-49.0); MPV 9.4 fL (7.6-11.3); RBC Red Blood Cell Count 4.84 M/uL (4.33-5.43)
[2018-10-22 07:01] LABS: Albumin 3.7 g/dL (3.4-5.0); Bilirubin Total 0.2 mg/dL (0.2-1.0); Potassium 3.8 mmol/L (3.5-5.1); Protein, Total 7.2 g/dL (6.4-8.2)
[2018-10-22] MEDS: COLCHICINE 0.6 MG TAB PO SCH (08:03)
[2018-10-22] MEDS: METOPROLOL TAR 25 MG TAB PO SCH (08:04)
[2018-10-22] MEDS ORDERED: ASPIRIN EC 81 MG TAB PO SCH (09:00)
[2018-10-22] MEDS ORDERED: LISINOPRIL 10 MG TAB PO SCH (09:00)
--- NOTE | 2018-10-22 09:19 | PN ---
Mr. Goncalves has no chest pain today. He can take a deep breath without any trouble. His echocardiogr am, enzymes, EKGs look good. He is about 3 months post coronary bypass surgery. He is not having an acute coronary syndrome. He is having a mild case of post pericardiotomy syndrome. I would recomme nd he be discharged home with very explicit detailed instructions on his medicines. I think he is no ncompliant with his medicines and I think we should add to his medicine outpatient regimen colchicine 0.6 b.i.d. for 2 weeks and then stop it. He can be seen in my clinic in followup in a few weeks. MINDY Voice ID: [id number] Report ID: [id number]
[2018-10-22 14:04] VITALS: BP 120/55; TEMP 98
--- NOTE | 2018-10-23 06:41 | DS ---
Date of Discharge: 10/22/2018 Discharge Diagnoses: 1.Musculoskeletal chest pain. 2.History of coronary artery disease. 3.Hypertension. 4.Noncompliance. 5.Hyperlipidemia. Consultations: Cardiology. Procedures: V/Q scan done on 10/21 was negative for PE. Lower extremity Doppler was negative for DV T. EKG was normal sinus rhythm infarct. Chest x-ray was normal. History Of Present Illness: Please refer to Dr. Neves's admission note. Hospital Course: Initially, the patient presented with substernal chest tightness and heaviness, rad iating to his distal arm. Upon admission, EKG was nonspecific. Cardiac enzymes were negative. Ches t x-ray was negative. V/Q scan was negative for PE as well as Doppler was negative for DVT. Cardiol ogy consult requested. Dr. Murillo seen the patient, and he thinks the patient is nonspecific and adv ised to start colchicine 0.6 twice a day for 2 weeks. Because the patient's cardiac enzymes were neg ative, Dr. Murillo did not think pain is cardiac. He would like the patient to be discharged in stabl e condition. Follow up with him in the office. Patient was advised to avoid exertion and follow up with primary care physician as soon as possible in [address] Murillo with any chest pain. Discharge Condition: Stable. Discharged Diet: Cardiac. Discharge Followup: With Dr. Murillo in 1 week. Discharge followup with primary care physician in 1 week. Discharge Activity: Avoid exertion. Discharge Medications: Colchicine 0.6 mg twice a day, aspirin 81 mg only once a day, Lipitor 80 mg a t bedtime, Plavix 75 mg once a day, fish oil 1000 mg daily, Tricor 145 mg daily, metoprolol 25 mg twi ce a day, Protonix 40 mg once a day. Discharge Physical Examination: Vital Signs: Blood pressure is 124/69, respiratory rate 18, pulse 5 7, temperature 98.5. General: Patient is alert and oriented x3. Does not look in any distress. HEENT: Atraumatic, normocephalic. PERRLA. Oral mucosa is moist. Neck: Supple. No JVD. No carotid bruits. Chest: Clear to auscultation with good air entry. Heart: Regular rate and rhythm. S1, S2 normal. No gallop or murmur. Abdomen: Soft, nontender with no hepatosplenomegaly. Positive bowel sounds. Extremities: No clubbing, cyanosis, or edema. No calf tenderness. Neurologic: Grossly intact. MUSA/DAMI Voice ID: [id number] Report ID: [id number]
== END 2018-10-22 12:17 | disposition home or self-care (01) ==
LOC: ER 08:24 → ERHOLD 11:35 → 2ND 13:51
PROVIDERS: ADMIT Internal Medicine; ATTEND Family Medicine
DX: R07.89 Other chest pain (principal); I25.10 Atherosclerotic heart disease of native coronary artery without angina pectoris; I10 Essential (primary) hypertension; E78.5 Hyperlipidemia, unspecified; Z95.1 Presence of aortocoronary bypass graft; I25.2 Old myocardial infarction; Z87.891 Personal history of nicotine dependence; Z91.19 Patient's noncompliance with other medical treatment and regimen
CPT/HCPCS: 93005; 93306; 85025 ×3; 87086; 80048; 36415 ×2; 83721; 83735; 85610; 80061; 80076; 81003; 84484 ×3; 83690; 80053; 83880; 71045; 93970; 78582; 96375; 96372; 96374; 99285; J1650; J2270; J2405; A9558; A9540; G0378 ×3; 87088

== ENCOUNTER 2018-10-24 09:51 | Emergency (ER) | payer OTHER ==
--- OUTSIDE RECORDS SUMMARY | 2018-10-24 09:53 | XMS REPORT ---
:1950 [facility] Address [address] [place] [address] [place] [id number] Care Team Providers Name Role Phone Unavailable Unavailable Unavailable Problems This patient has no known problems. Allergies, Adverse Reactions, Alerts This patient has no known allergies or adverse reactions. Medications This patient has no known medications.
--- NOTE | 2018-10-24 10:45 | RAD REPORT ---
EXAM DESCRIPTION: RAD - Elbow Left 3 View - 10/24/2018 10:39 am CLINICAL HISTORY: PAIN COMPARISON: No comparisons FINDINGS: No acute fracture or dislocation seen. Small olecranon spur evident.
--- NOTE | 2018-10-24 11:19 | EDPHYS ---
Physician Documentation [facility] Name: Jacob Goncalves Age: 67 yrs Sex: Male : 1950 Arrival Date: 10/24/2018 Time: 09:55 Bed 6 Private MD: Lopez Garcia E ED Physician Desmond Haywood HPI: 10/24 10:05 This 67 yrs old Male presents to ER via Ambulatory with complaints of Elbow rn Injury. 10:05 The patient or guardian complains of injury, pain. The complaints affect the left rn elbow. Onset: The symptoms/episode began/occurred 2 month(s) ago. Modifying factors: The symptoms are alleviated by nothing. the symptoms are aggravated by movement, bending arm. Severity of symptoms: At their worst the symptoms were mild, in the emergency department the symptoms are unchanged. The patient has not experienced similar symptoms in the past. The patient has not recently seen a physician. Reports fall at home 2 months ago, landed on left elbow, has been having pain since then, is able to work and use arm, no numbness/weakness, hurts more to use arm. Denies new injury. . Historical: - Allergies: 09:58 Ibuprofen (Vomiting); aa5 - PMHx: 09:58 High Cholesterol; Hypertension; Myocardial infarction; aa5 - PSHx: 09:58 left lower leg surgery for injury with saw (2008); neck surgery; CABG; Heart stents; aa5 - Immunization history:: Flu vaccine is up to date. - Social history:: Smoking status: Patient/guardian denies using tobacco. - Ebola Screening: : No symptoms or risks identified at this time. - Family history:: not pertinent. - Hospitalizations: : No recent hospitalization is reported. ROS: 10:05 Constitutional: Negative for fever, chills, and weight loss, Cardiovascular: Negative rn for chest pain, palpitations, and edema, MS/Extremity: + left elbow injury and pain Skin: Negative for injury, rash, and discoloration, Neuro: Negative for weakness, numbness, tingling Exam: 10:05 Constitutional: This is a well developed, well nourished patient who is awake, alert, rn and in no acute distress. MS/ Extremity: Pulses equal, no cyanosis. Neurovascular intact. Full, normal range of motion. Equal circumference. No ulnar tenderness, + tenderness proximal radial head. No gross deformity. Vital Signs: 09:59 BP 140 / 83; Pulse 62; Resp 16 S; Temp 97.7(TE); Pulse Ox 100% on R/A; Weight 74.84 kg aa5 (R); Height 5 ft. 5 in. (165.10 cm) (R); Pain 8/10; 09:59 Body Mass Index 27.46 (74.84 kg, 165.10 cm) aa5 MDM: 09:58 Patient medically screened. rn 11:15 Differential diagnosis: closed fracture, contusion, tendonitis. Data reviewed: vital rn signs, nurses notes, radiologic studies, plain films, and as a result, I will discharge patient. Test interpretation: by ED physician or midlevel provider: plain radiologic studies, Xray left elbow neg for fracture/dislocation. Counseling: I had a detailed discussion with the patient and/or guardian regarding: the historical points, exam findings, and any diagnostic results supporting the discharge/admit diagnosis, radiology results, the need for outpatient follow up, to return to the emergency department if symptoms worsen or persist or if there are any questions or concerns that arise at home. Special discussion: I discussed with the patient/guardian in detail that at this point there is no indication for admission to the hospital. It is understood, however, that if the symptoms persist or worsen the patient needs to return immediately for re-evaluation. 11:15 ED course: Most likely tendinitis given neg plain films and chronicity of pain. rn 10/24 10:05 Order name: XRAY Elbow LEFT 3 view; Complete Time: 11:06 rn Administered Medications: No medications were administered Disposition: 10/24/18 11:17 Discharged to Home. Impression: Pain in left elbow, Tendinitis left elbow, lateral condyle. - Condition is Stable. - Discharge Instructions: Arthritis, Tendinitis. - Prescriptions for Tramadol 50 mg Oral Tablet - take 1 tablet by ORAL route every 8 hours as needed; 15 tablet. - Medication Reconciliation Form, Thank You Letter, Antibiotic Education, Prescription Opioid Use, Work release form form. - Follow up: Private Physician; When: As needed; Reason: Recheck today's complaints, Re-evaluation by your physician. - Problem is an ongoing problem. - Symptoms are unchanged. Signatures: Dispatcher [employer] EDMS Desmond Haywood MD MD rn Calderon, Audri, RN RN aa5 Corrections: (The following items were deleted from the chart) 11:34 11:17 10/24/2018 11:17 Discharged to Home. Impression: Pain in left elbow; Tendinitis aa5 left elbow, lateral condyle. Condition is Stable. Forms are Medication Reconciliation Form, Thank You Letter, Antibiotic Education, Prescription Opioid Use. Follow up: Private Physician; When: As needed; Reason: Recheck today's complaints, Re-evaluation by your physician. Problem is an ongoing problem. Symptoms are unchanged. rn
--- NOTE | 2018-10-24 11:19 | ER ---
Nurse's Notes [facility] Name: Jacob Goncalves Age: 67 yrs Sex: Male : 1950 Arrival Date: 10/24/2018 Time: 09:55 Bed 6 Private MD: Lopez Garcia E Diagnosis: Pain in left elbow;Tendinitis left elbow, lateral condyle Presentation: 10/24 09:57 Presenting complaint: Patient states: "I fell a while back and my left elbow has been aa5 hurting since then". Transition of care: patient was not received from another setting of care. Onset of symptoms was 2018. Risk Assessment: Do you want to hurt yourself or someone else? Patient reports no desire to harm self or others. Initial Sepsis Screen: Does the patient meet any 2 criteria? No. Patient's initial sepsis screen is negative. Does the patient have a suspected source of infection? No. Patient's initial sepsis screen is negative. Care prior to arrival: None. 09:57 Acuity: EVA 4 aa5 09:57 Method Of Arrival: Ambulatory aa5 Triage Assessment: 10/23 10:50 General: Appears in no apparent distress. Behavior is calm, cooperative. Injury iw Description:. Historical: - Allergies: 10/24 09:58 Ibuprofen (Vomiting); aa5 - PMHx: 09:58 High Cholesterol; Hypertension; Myocardial infarction; aa5 - PSHx: 09:58 left lower leg surgery for injury with saw (2008); neck surgery; CABG; Heart stents; aa5 - Immunization history:: Flu vaccine is up to date. - Social history:: Smoking status: Patient/guardian denies using tobacco. - Ebola Screening: : No symptoms or risks identified at this time. - Family history:: not pertinent. - Hospitalizations: : No recent hospitalization is reported. Screenin:32 Abuse screen: Denies threats or abuse. Denies injuries from another. Nutritional iw screening: No deficits noted. Tuberculosis screening: No symptoms or risk factors identified. Fall Risk None identified. Assessment: 10:30 General: Appears in no apparent distress. Behavior is calm, cooperative. Pain: iw Complains of pain in left elbow. Neuro: Level of Consciousness is awake, alert, obeys commands, Oriented to person, place, time, situation, Moves all extremities. Full function. Cardiovascular: Patient's skin is warm and dry. Respiratory: Respiratory effort is even, unlabored. Derm: Skin is intact, is healthy with good turgor. Musculoskeletal: Range of motion: intact in all extremities. 11:33 Reassessment: Patient is alert, oriented x 3, equal unlabored respirations, skin aa5 warm/dry/pink. 11:33 General: Appears comfortable. aa5 Vital Signs: 09:59 BP 140 / 83; Pulse 62; Resp 16 S; Temp 97.7(TE); Pulse Ox 100% on R/A; Weight 74.84 kg aa5 (R); Height 5 ft. 5 in. (165.10 cm) (R); Pain 8/10; 09:59 Body Mass Index 27.46 (74.84 kg, 165.10 cm) aa5 ED Course: 09:55 Patient arrived in ED. mr 09:55 Lopez Garcia MD is Private Physician. mr 09:57 Arm band placed on. aa5 09:58 Desmond Haywood MD is Attending Physician. rn 09:58 Triage completed. aa5 10:00 Shahla Ackerman, RN is Primary Nurse. iw 10:30 Patient has correct armband on for positive identification. iw 10:38 XRAY Elbow LEFT 3 view In Process Unspecified. EDMS 11:33 No provider procedures requiring assistance completed. Patient did not have IV access aa5 during this emergency room visit. Administered Medications: No medications were administered Outcome: 11:17 Discharge ordered by . rn 11:33 Discharged to home ambulatory. aa5 11:33 Condition: stable 11:33 Discharge instructions given to patient, Instructed on discharge instructions, follow up and referral plans. medication usage, Demonstrated understanding of instructions, follow-up care, medications, Prescriptions given X 1. 11:34 Patient left the ED. aa5 Signatures: Dispatcher [employer] [facility] Madiha Macedo mr Shahla Ackerman, RN Desmond Victor MD MD rn Calderon, Audri, RN RN aa5
[2018-10-24 15:56] VITALS: BP 140/83; TEMP 97.7; O2SAT 100
== END 2018-10-24 11:34 | disposition home or self-care (01) ==
LOC: ER 09:51
DX: M77.9 Enthesopathy, unspecified (principal); I10 Essential (primary) hypertension; Z88.6 Allergy status to analgesic agent; Z95.1 Presence of aortocoronary bypass graft; Z95.818 Presence of other cardiac implants and grafts
CPT/HCPCS: 99283